=== PATIENT | female | born 1955 | race Caucasian/White ===

== ENCOUNTER 2016-07-06 11:09 | Emergency (ER) | payer MEDICARE, MEDICAID ==
--- NOTE | 2016-07-06 12:49 | EDM.PDOC ---
[id number] Chief Complaint: General Stated Complaint: WEAKNESS,NAUSEA,DIZZINESS Time Seen by Provider: 07/06/16 12:45 - Related Data Allergies Allergy/AdvReac Type Severity Reaction Status Date / Time No Known Allergies Allergy Verified 07/06/16 11:30 Home Meds: Home Meds Insulin Detemir [Levemir Flextouch] 20 units SQ BEDTIME 06/21/14 [History] metFORMIN [Glucophage XR] 750 mg PO BIDM 06/21/14 [History] traMADol HCl [Tramadol HCl] 50 - 100 mg PO Q6H PRN 06/21/14 [History] Dexamethasone 1 mg PO ASDIRECTED 06/08/16 [History] Mecobalamin [Methylcobalamin] 5,000 mcg PO DAILY 06/08/16 [History] Multivitamin [Multivitamins] 1 tab PO DAILY 06/08/16 [History] Spironolactone [Aldactone] 100 mg PO DAILY 06/08/16 [History] oxyCODONE HCl [Oxycontin] 40 mg PO Q8H 06/08/16 [History] riTUXimab [Rituxan] ASDIRECTED 06/08/16 [History] Allopurinol [Zyloprim] 1 tab PO BID 07/06/16 [History] Folic Acid 1 tab PO DAILY 07/06/16 [History] Omeprazole 1 tab PO DAILY 07/06/16 [History] Ondansetron [Zofran ODT] 4 mg SQ ASDIRECTED 07/06/16 [History] Course - Vital Signs Last Recorded V/S: Last Vital Signs Temp 36.1 C 07/06/16 14:53 Pulse 76 07/06/16 18:15 Resp 14 07/06/16 14:53 BP 119/61 07/06/16 18:15 Pulse Ox 96 07/06/16 18:15 - Orders/Labs/Meds Labs: Laboratory Tests 07/06/16 07/06/16 07/06/16 Range/Units 12:30 12:41 12:41 WBC 1.2 L (4.5-11.0) K/uL RBC 1.62 L (3.30-5.50) M/uL Hgb 5.7 L* D (12.0-15.0) g/dL Hct 16.9 L (36.0-48.0) % MCV 104 H (80-98) fL MCH 35 H (27-31) pg MCHC 34 (32-36) % Plt Count 33 L (150-400) K/uL Neut % (Auto) 31 L (36-66) % Lymph % (Auto) 61 H (24-44) % Webb % (Auto) 7 H (2-6) % Eos % (Auto) 1 L (2-4) % Baso % (Auto) 0 (0-1) % Sodium 135 L (140-148) mmol/L Potassium 4.4 (3.6-5.2) mmol/L Chloride 100 (100-108) mmol/L Carbon Dioxide 24 (21-32) mmol/L Anion Gap 15.4 H (5.0-14.0) mmol/L BUN 20 H (7-18) mg/dL Creatinine 0.5 L (0.6-1.0) mg/dL Est Cr Clr Drug Dosing 106.68 mL/min Estimated GFR (MDRD) > 60 (>60) Glucose 111 H (74-106) mg/dL Calcium 8.3 L (8.5-10.1) mg/dL Total Bilirubin 0.7 (0.2-1.0) mg/dL AST 22 (15-37) U/L ALT 24 (12-78) U/L Alkaline Phosphatase 98 (46-116) U/L Total Protein 6.6 (6.4-8.2) g/dL Albumin 3.5 (3.4-5.0) g/dL Globulin 3.1 (2.3-3.5) g/dL Albumin/Globulin Ratio 1.1 L (1.2-2.2) Blood Type O POSITIVE Gel Antibody Screen Negative Crossmatch See Detail Meds: Medications Discontinued Medications Generic Name Dose Route Start Last Admin Trade Name Freq PRN Reason Stop Dose Admin Heparin Sodium (Porcine) Confirm 07/06/16 18:49 Heparin Lock Flush 100 Units/Ml Syringe Administered 07/06/16 18:50 Dose 500 units .ROUTE .STK-MED ONE Heparin Sodium (Porcine) 300 units 07/06/16 19:17 07/06/16 19:20 Heparin Lock Flush 100 Units/Ml Syringe FLUSH 300 units ASDIRECTED PRN Administration IV Use Departure - Departure Time of Disposition: 19:19 Disposition: Home, Self-Care 01 Condition: fair Clinical Impression: Anemia Qualifiers: Anemia type: bone marrow failure - Discharge Information Instructions: Blood Transfusion, [id number] Referrals: Judson Perez MD [Primary Care Provider] - Forms: ED Department Discharge Care Plan Goals: Go to your scheduled physician appointment for reevaluation tomorrow morning. <Jesica Deluna - Last Filed: 07/09/16 21:07> ED HPI GENERAL MEDICAL PROBLEM - General Source of Information: Reports: Patient, Family History Limitations: Reports: No Limitations - History of Present Illness INITIAL COMMENTS - FREE TEXT/NARRATIVE: pt has been sob and much weaker. Onset: Gradual Duration: Day(s):, Other ( sob) Location: Reports: Chest, Other ( sob) Associated Symptoms: Reports: Shortness of Breath Abdomen Pain Score (Numeric/FACES): 4 Past Medical History HEENT History: Reports: Impaired Vision Gastrointestinal History: Reports: GERD Musculoskeletal History: Reports: Back Pain, Chronic, Osteoporosis, Other (See Below) Other Musculoskeletal History: spinal stenosis Neurological History: Reports: Neuropathy, Diabetic Endocrine/Metabolic History: Reports: Diabetes, Type II Hematologic History: Reports: Anemia, Blood Transfusion(s) Immunologic History: Reports: Immunosuppression Oncologic (Cancer) History: Reports: Lymphoma - Infectious Disease History Infectious Disease History: Reports: Chicken Pox, Measles, Mumps - Past Surgical History GI Surgical History: Reports: Abdominal paracentesis, Appendectomy Female Surgical History: Reports: Hysterectomy Social & Family History - Tobacco Use Smoking Status *Q: Current Every Day Smoker Years of Tobacco use: 40 Packs/Tins Daily: 1 - Caffeine Use Caffeine Use: Reports: Coffee - Alcohol Use Days Per Week of Alcohol Use: 0 - Recreational Drug Use Recreational Drug Use: No ED ROS GENERAL - Review of Systems Review Of Systems: See Below Constitutional: Reports: No Symptoms HEENT: Reports: No Symptoms Respiratory: Reports: Shortness of Breath Cardiovascular: Reports: No Symptoms Endocrine: Reports: No Symptoms GI/Abdominal: Reports: No Symptoms, Other (pt has pt has some tenderness around the spleen. ) : Reports: No Symptoms Musculoskeletal: Reports: No Symptoms Skin: Reports: No Symptoms Neurological: Reports: No Symptoms Psychiatric: Reports: Anxiety ED EXAM, GENERAL - Physical Exam Exam: See Below Free Text/Narrative:: pt arrived sob. She has had increased weakness. Exam Limited By: No Limitations General Appearance: Alert, Anxious, Other ( very pale) Ears: Normal External Exam Nose: Normal Inspection Throat/Mouth: Normal Inspection Head: Atraumatic Neck: Normal Inspection Respiratory/Chest: No Respiratory Distress Cardiovascular: Regular Rate, Rhythm GI/Abdominal: Soft, Non-Tender, Splenomegaly Rectal (Female) Exam: Deferred Back Exam: Normal Inspection Extremities: Normal Inspection Neurological: Alert, Oriented, Normal Cognition Psychiatric: Normal Affect Course - Orders/Labs/Meds Labs: Laboratory Tests 07/06/16 07/06/16 07/06/16 Range/Units 12:30 12:41 12:41 WBC 1.2 L (4.5-11.0) K/uL RBC 1.62 L (3.30-5.50) M/uL Hgb 5.7 L* D (12.0-15.0) g/dL Hct 16.9 L (36.0-48.0) % MCV 104 H (80-98) fL MCH 35 H (27-31) pg MCHC 34 (32-36) % Plt Count 33 L (150-400) K/uL Neut % (Auto) 31 L (36-66) % Lymph % (Auto) 61 H (24-44) % Webb % (Auto) 7 H (2-6) % Eos % (Auto) 1 L (2-4) % Baso % (Auto) 0 (0-1) % Sodium 135 L (140-148) mmol/L Potassium 4.4 (3.6-5.2) mmol/L Chloride 100 (100-108) mmol/L Carbon Dioxide 24 (21-32) mmol/L Anion Gap 15.4 H (5.0-14.0) mmol/L BUN 20 H (7-18) mg/dL Creatinine 0.5 L (0.6-1.0) mg/dL Est Cr Clr Drug Dosing 106.68 mL/min Estimated GFR (MDRD) > 60 (>60) Glucose 111 H (74-106) mg/dL Calcium 8.3 L (8.5-10.1) mg/dL Total Bilirubin 0.7 (0.2-1.0) mg/dL AST 22 (15-37) U/L ALT 24 (12-78) U/L Alkaline Phosphatase 98 (46-116) U/L Total Protein 6.6 (6.4-8.2) g/dL Albumin 3.5 (3.4-5.0) g/dL Globulin 3.1 (2.3-3.5) g/dL Albumin/Globulin Ratio 1.1 L (1.2-2.2) Blood Type O POSITIVE Gel Antibody Screen Negative Crossmatch See Detail Meds: Medications Discontinued Medications Generic Name Dose Route Start Last Admin Trade Name Freq PRN Reason Stop Dose Admin Heparin Sodium (Porcine) Confirm 07/06/16 18:49 Heparin Lock Flush 100 Units/Ml Syringe Administered 07/06/16 18:50 Dose 500 units .ROUTE .STK-MED ONE Heparin Sodium (Porcine) 300 units 07/06/16 19:17 07/06/16 19:20 Heparin Lock Flush 100 Units/Ml Syringe FLUSH 300 units ASDIRECTED PRN Administration IV Use - Re-Assessments/Exams Free Text/Narrative Re-Assessment/Exam: 07/06/16 13:35 pt wasfound to have a hg of 5.7. She will be transfused with 2 units of packed cells. chest xray revealed no acute changes. [facility].
--- NOTE | 2016-07-06 14:08 | CR ---
Chest 2V HISTORY: sob COMPARISON: None FINDINGS: Lungs appear clear and normally aerated. Cardiomediastinal silhouette is within normal limits. No va scular redistribution or pleural fluid can be seen. There is no pneumothorax. Right-sided central ve nous Port-A-Cath is noted. The tip overlies the mid SVC. Bony structures and soft tissues are unrema rkable. IMPRESSION: Right-sided central venous Port-A-Cath is in satisfactory position. The tip overlies the mid SVC. No acute cardiopulmonary disease is identified.
[2016-07-06 18:31] VITALS: BP 119/61
== END 2016-07-06 19:19 | disposition home or self-care (01) ==
LOC: JP.ED 11:09
DX: D61.9 Aplastic anemia, unspecified (principal); K21.9 Gastro-esophageal reflux disease without esophagitis; M19.90 Unspecified osteoarthritis, unspecified site; F17.210 Nicotine dependence, cigarettes, uncomplicated; E11.40 Type 2 diabetes mellitus with diabetic neuropathy, unspecified; Z90.49 Acquired absence of other specified parts of digestive tract; Z79.4 Long term (current) use of insulin; Z79.84 Long term (current) use of oral hypoglycemic drugs; Z79.899 Other long term (current) drug therapy; Z90.710 Acquired absence of both cervix and uterus
CPT/HCPCS: 36415; 36430; 71020; 80053; 85025; 86850; 86900; 86901; 86920; 86922; 99284; 99285; J1642; P9016

== ENCOUNTER 2016-08-15 15:30 | Inpatient (IN) | payer MEDICARE, SELFPAY ==
[2016-08-15] MEDS ORDERED: Lactated Ringers 1,000 ML IV SCH (16:30)
[2016-08-15] MEDS ORDERED: HYDROmorphone 1 MG/ML Syringe IVPUSH ONE (16:32)
[2016-08-15] MEDS ORDERED: Ondansetron 4 MG/2 ML SDV IVPUSH ONE (16:32)
--- NOTE | 2016-08-15 16:38 | EDM.PDOC ---
ED HPI GENERAL MEDICAL PROBLEM - General Chief Complaint: Abdominal Pain Stated Complaint: abd pain Time Seen by Provider: 08/15/16 16:21 Source of Information: Reports: Patient, Family, RN Notes Reviewed History Limitations: Reports: No Limitations - History of Present Illness INITIAL COMMENTS - FREE TEXT/NARRATIVE: 60-year-old female presents emergency department day complaint of increasing abdominal distention and fever she has a known history of follicular lymphoma is currently undergoing chemotherapy once per week she states been feeling fine yesterday felt fine and then the fever came on today as well as the increased abdominal distention. He also has been incontinent of urine and stool which is mainly diarrhea. She has have a history of paracentesis 1 denies any shortness of breath or chest pain, will get increasing pain with a deep breath Abdominal Pain Score (Numeric/FACES): 10 - Related Data Allergies Allergy/AdvReac Type Severity Reaction Status Date / Time No Known Allergies Allergy Verified 08/15/16 17:27 Home Meds: Home Meds Insulin Detemir [Levemir Flextouch] 45 units SQ BEDTIME 06/21/14 [History] metFORMIN [Glucophage XR] 750 mg PO BIDM 06/21/14 [History] traMADol HCl [Tramadol HCl] 50 - 100 mg PO Q6H PRN 06/21/14 [History] Multivitamin [Multivitamins] 1 tab PO DAILY 06/08/16 [History] Allopurinol [Zyloprim] 1 tab PO BID 07/06/16 [History] Folic Acid 1 tab PO DAILY 07/06/16 [History] Ondansetron [Zofran ODT] 4 mg SQ ASDIRECTED 07/06/16 [History] Furosemide 40 mg PO DAILY 08/15/16 [History] oxyCODONE HCl [Oxycontin] 40 mg PO TID 08/15/16 [History] Past Medical History HEENT History: Reports: Impaired Vision Gastrointestinal History: Reports: GERD Genitourinary History: Reports: Urinary Incontinence Musculoskeletal History: Reports: Back Pain, Chronic, Osteoporosis, Other (See Below) Other Musculoskeletal History: spinal stenosis Neurological History: Reports: Neuropathy, Diabetic Endocrine/Metabolic History: Reports: Diabetes, Type II Hematologic History: Reports: Anemia, Blood Transfusion(s) Immunologic History: Reports: Immunosuppression Oncologic (Cancer) History: Reports: Lymphoma - Infectious Disease History Infectious Disease History: Reports: C-Difficile, Measles, Mumps - Past Surgical History GI Surgical History: Reports: Abdominal paracentesis, Appendectomy Female Surgical History: Reports: Hysterectomy Social & Family History - Tobacco Use Smoking Status *Q: Current Every Day Smoker Years of Tobacco use: 40 Packs/Tins Daily: 1 - Caffeine Use Caffeine Use: Reports: Coffee - Alcohol Use Days Per Week of Alcohol Use: 0 - Recreational Drug Use Recreational Drug Use: No ED ROS GENERAL - Review of Systems Review Of Systems: See Below Constitutional: Reports: Fever, Chills, Weakness HEENT: Reports: No Symptoms Respiratory: Reports: No Symptoms Cardiovascular: Reports: No Symptoms GI/Abdominal: Reports: Abdominal Pain, Diarrhea, Distension. Denies: Nausea, Vomiting : Reports: Incontinence Musculoskeletal: Reports: No Symptoms Skin: Reports: No Symptoms Neurological: Reports: No Symptoms ED EXAM, GI/ABD - Physical Exam Exam: See Below Text/Narrative:: General: Female, not in any distress, alert and oriented x3 HEENT: head is atraumatic normocephalic, eyes pupils equal round reactive to light, sclera clear no conjunctivitis appreciated. Ears tympanic membranes clear and choi landmarks and light reflex are present bilaterally canals are clear. Nose no septal deviation, nares are clear, no blood present. Mouth mucosa is moist and pink no erythema or exudate noted in soft palate, tongue is midline uvula is midline, dentition is intact. Neck: Supple no thyromegaly no tracheal deviation. Nodes: Cervical nodes subclavicular nodes nontender no palpable lymphadenopathy noted. Lungs: clear to auscultation bilaterally with symmetrical respirations, no adventitious noise appreciated. CV: Regular rate and rhythm S1 and S2 appreciated grade 2/6 systolic ejection murmur best appreciated left sternal border, no rubs or gallops noted. Abdomen: Soft, generalized tenderness to palpation, no palpable masses or organomegaly appreciated, marked distention distention no guarding bowel sounds are present, . Neuro: Cranial nerves II through XII grossly intact Skin: Warm and dry, intact Extremities: No lower extremity edema appreciated, pedal pulse is +2. Course - Vital Signs Last Recorded V/S: Last Vital Signs Temp 100.2 F 08/15/16 16:09 Pulse 105 H 08/15/16 16:09 Resp 20 08/15/16 16:09 BP 120/65 08/15/16 16:09 Pulse Ox 96 08/15/16 16:09 - Orders/Labs/Meds Orders: Active Orders 24 hr Category Date Time Status CULTURE BLOOD [BC] Urgent Lab 08/15/16 16:35 Received CULTURE BLOOD [BC] Urgent Lab 08/15/16 16:45 Received INR,PT,PROTHROMBIN TIME [COAG] Stat Lab 08/15/16 16:35 Received PTT,PARTIAL THROMBOPLSTIN TIME [COAG] Stat Lab 08/15/16 16:35 Received RED BLOOD CELLS LP [BBK] Stat Lab 08/15/16 17:15 Ordered TYPE AND SCREEN [BBK] Stat Lab 08/15/16 17:15 Ordered UA W/MICROSCOPIC [URIN] Urgent Lab 08/15/16 16:29 Uncollected Cefepime [Maxipime] 1 gm Med 08/15/16 17:41 Active Sodium Chloride 0.9% [Normal Saline] 50 ml IV ONETIME Lactated Ringers [Ringers, Lactated] 1,000 ml Med 08/15/16 16:30 Active IV ASDIRECTED Blood Culture x2 Reflex Set [OM.PC] Urgent Oth 08/15/16 16:29 Ordered Medication Orders Lactated Ringer's (Ringers, Lactated) 1,000 mls @ 500 mls/hr IV ASDIRECTED AMANDA Last Admin: 08/15/16 17:15 Dose: 500 mls/hr Cefepime HCl 1 gm/ Sodium (Chloride) 50 mls @ 100 mls/hr IV ONETIME ONE Stop: 08/15/16 18:10 Labs: Laboratory Tests 08/15/16 08/15/16 08/15/16 Range/Units 16:35 16:35 16:35 WBC 0.9 L* (4.5-11.0) K/uL RBC 2.10 L (3.30-5.50) M/uL Hgb 6.7 L* (12.0-15.0) g/dL Hct 19.4 L (36.0-48.0) % MCV 92 (80-98) fL MCH 32 H (27-31) pg MCHC 35 (32-36) % Plt Count 18 L* (150-400) K/uL Neut % (Auto) 84 H (36-66) % Lymph % (Auto) 9 L (24-44) % Grayson % (Auto) 7 H (2-6) % Eos % (Auto) 0 L (2-4) % Baso % (Auto) 0 (0-1) % Sodium 132 L (140-148) mmol/L Potassium 3.4 L (3.6-5.2) mmol/L Chloride 96 L (100-108) mmol/L Carbon Dioxide 27 (21-32) mmol/L Anion Gap 12.4 (5.0-14.0) mmol/L BUN 28 H D (7-18) mg/dL Creatinine 0.7 (0.6-1.0) mg/dL Est Cr Clr Drug Dosing 75.65 mL/min Estimated GFR (MDRD) > 60 (>60) Glucose 150 H (74-106) mg/dL Lactic Acid 2.8 H (0.4-2.0) mmol/L Calcium 8.2 L (8.5-10.1) mg/dL Total Bilirubin 0.9 D (0.2-1.0) mg/dL AST 26 (15-37) U/L ALT 45 D (12-78) U/L Alkaline Phosphatase 77 (46-116) U/L C-Reactive Protein (0.0-0.3) mg/dL Total Protein 5.7 L (6.4-8.2) g/dL Albumin 2.5 L (3.4-5.0) g/dL Globulin 3.2 (2.3-3.5) g/dL Albumin/Globulin Ratio 0.8 L (1.2-2.2) 06/25/17 Range/Units 16:35 WBC (4.5-11.0) K/uL RBC (3.30-5.50) M/uL Hgb (12.0-15.0) g/dL Hct (36.0-48.0) % MCV (80-98) fL MCH (27-31) pg MCHC (32-36) % Plt Count (150-400) K/uL Neut % (Auto) (36-66) % Lymph % (Auto) (24-44) % Grayson % (Auto) (2-6) % Eos % (Auto) (2-4) % Baso % (Auto) (0-1) % Sodium (140-148) mmol/L Potassium (3.6-5.2) mmol/L Chloride (100-108) mmol/L Carbon Dioxide (21-32) mmol/L Anion Gap (5.0-14.0) mmol/L BUN (7-18) mg/dL Creatinine (0.6-1.0) mg/dL Est Cr Clr Drug Dosing mL/min Estimated GFR (MDRD) (>60) Glucose (74-106) mg/dL Lactic Acid (0.4-2.0) mmol/L Calcium (8.5-10.1) mg/dL Total Bilirubin (0.2-1.0) mg/dL AST (15-37) U/L ALT (12-78) U/L Alkaline Phosphatase (46-116) U/L C-Reactive Protein 32.29 H (0.0-0.3) mg/dL Total Protein (6.4-8.2) g/dL Albumin (3.4-5.0) g/dL Globulin (2.3-3.5) g/dL Albumin/Globulin Ratio (1.2-2.2) Meds: Medications Generic Name Dose Route Start Last Admin Trade Name Freq PRN Reason Stop Dose Admin Lactated Ringer's 1,000 mls @ 500 mls/hr 08/15/16 16:30 08/15/16 17:15 Ringers, Lactated IV 500 mls/hr ASDIRECTED AMANDA Administration Cefepime HCl 1 gm/ Sodium 50 mls @ 100 mls/hr 08/15/16 17:41 Chloride IV 08/15/16 18:10 ONETIME ONE Discontinued Medications Generic Name Dose Route Start Last Admin Trade Name Freq PRN Reason Stop Dose Admin Hydromorphone HCl 1 mg 08/15/16 16:32 08/15/16 17:21 Dilaudid IVPUSH 08/15/16 16:33 1 mg ONETIME ONE Administration Ondansetron HCl 4 mg 08/15/16 16:32 08/15/16 17:19 Zofran IVPUSH 08/15/16 16:33 4 mg ONETIME ONE Administration Departure - Departure Time of Disposition: 17:55 Disposition: Admitted As Inpatient 68 Condition: Poor Clinical Impression: Neutropenic fever Follicular lymphoma Qualifiers: Follicular lymphoma type: unspecified follicular type Lymphoma site: unspecified region Qualified Code(s): C82.90 - Follicular lymphoma, unspecified , unspecified site - Discharge Information Forms: ED Department Discharge - My Orders Last 24 Hours: My Active Orders 08/15/16 16:29 UA W/MICROSCOPIC [URIN] Urgent Blood Culture x2 Reflex Set [OM.PC] Urgent 08/15/16 16:30 Lactated Ringers [Ringers, Lactated] 1,000 ml IV ASDIRECTED 08/15/16 16:35 CULTURE BLOOD [BC] Urgent INR,PT,PROTHROMBIN TIME [COAG] Stat PTT,PARTIAL THROMBOPLSTIN TIME [COAG] Stat 08/15/16 16:45 CULTURE BLOOD [BC] Urgent 08/15/16 17:15 RED BLOOD CELLS LP [BBK] Stat TYPE AND SCREEN [BBK] Stat 08/15/16 17:41 Cefepime [Maxipime] 1 gm Sodium Chloride 0.9% [Normal Saline] 50 ml IV ONETIME - Assessment/Plan Last 24 Hours: My Active Orders 08/15/16 16:29 UA W/MICROSCOPIC [URIN] Urgent Blood Culture x2 Reflex Set [OM.PC] Urgent 08/15/16 16:30 Lactated Ringers [Ringers, Lactated] 1,000 ml IV ASDIRECTED 08/15/16 16:35 CULTURE BLOOD [BC] Urgent INR,PT,PROTHROMBIN TIME [COAG] Stat PTT,PARTIAL THROMBOPLSTIN TIME [COAG] Stat 08/15/16 16:45 CULTURE BLOOD [BC] Urgent 08/15/16 17:15 RED BLOOD CELLS LP [BBK] Stat TYPE AND SCREEN [BBK] Stat 08/15/16 17:41 Cefepime [Maxipime] 1 gm Sodium Chloride 0.9% [Normal Saline] 50 ml IV ONETIME Plan: Assessment Acuity = acute Site and laterality = neutropenic fever complicated patient with known history of follicular lymphoma Etiology = unclear etiology Manifestations = fever, weakness Location of injury = home Lab values = WBC low at 900 consistent with leukopenia neutrophils are at 756 hematoma low at 6.7 consistent with normochromic anemia platelets low at 18 consistent with thrombocytopenia sodium low at 132 consistent with hyponatremia potassium low at 3.4 consistent hypokalemia lactic acid elevated at 2.8 consistent lactic acidosis CRP elevated at 33 and albumin low at 2.5 consistent hypoalbuminemia Plan discuss case with hospitalist electronic equipment trades worker he agreed to come and evaluate the patient in the ED for admission, she was given 1 g cefepime blood cultures are pending Patient was in agreement with the plan all questions were answered This note was dictated using [employer] voice recognition software please call with any questions.
[2016-08-15] MEDS ORDERED: Cefepime 1 GM in Sodium Chloride 0.9% 50 ML IV ONE (17:41)
[2016-08-15] MEDS ORDERED: Lactated Ringers 1,000 ML IV ONE (18:15)
--- NOTE | 2016-08-15 19:12 | PCM.HP ---
H&P History of Present Illness - General Date of Service: 08/15/16 Admit Problem/Dx: Admission Diagnosis/Problem Admission Diagnosis/Problem Abdominal pain Source of Information: Patient, Family, Provider History Limitations: Reports: No Limitations - History of Present Illness Initial Comments - Free Text/Narative: Josefina presents to the emergency room today with 3 days of progressive generalized abdominal pain and diarrhea. She describes a combination of sharp and achy generalized abdominal pain that comes and goes in waves. Her usual home narcotics have not been sufficient to control the pain. Eating does not seem to affect the pain. Pain seems to be worse prior to bowel movements. Bowel movements had been normal the past 2 days but today she reports multiple episodes with large quantities of loose and watery stool with a very foul odor. She notes that her urine has been dark and foul-smelling compared to usual as well. Appetite has not been very good but she has been drinking plenty of water. She hasn't noticed fevers at home but has had some chills. No shaking chills are reported. No complaints of shortness of breath beyond her baseline. She did get short of breath when she laid down today. She has not been coughing. No obvious sick contacts or recent travel. Her last chemotherapy was last Tuesday, 5 days before admission. Workup in the emergency room revealed pancytopenia, sepsis with likely intra- abdominal source. She has received her fluid challenge and antibiotics and will be admitted to the intensive care unit. Abdominal Pain Score (Numeric/FACES): 10 - Related Data Allergies/Adverse Reactions: Allergies Allergy/AdvReac Type Severity Reaction Status Date / Time No Known Allergies Allergy Verified 08/15/16 18:17 Home Medications: Home Meds Insulin Detemir [Levemir Flextouch] 45 units SQ BEDTIME 06/21/14 [History] metFORMIN [Glucophage XR] 750 mg PO BIDM 06/21/14 [History] traMADol HCl [Tramadol HCl] 50 - 100 mg PO Q6H PRN 06/21/14 [History] Multivitamin [Multivitamins] 1 tab PO DAILY 06/08/16 [History] Allopurinol [Zyloprim] 1 tab PO BID 07/06/16 [History] Folic Acid 1 tab PO DAILY 07/06/16 [History] Ondansetron [Zofran ODT] 4 mg SQ ASDIRECTED 07/06/16 [History] Furosemide 40 mg PO DAILY 08/15/16 [History] oxyCODONE HCl [Oxycontin] 40 mg PO TID 08/15/16 [History] Past Medical History HEENT History: Reports: Impaired Vision Gastrointestinal History: Reports: GERD Other Gastrointestinal History: took the meds to get rid of hep c Genitourinary History: Reports: Urinary Incontinence Musculoskeletal History: Reports: Back Pain, Chronic, Osteoporosis, Other (See Below) Other Musculoskeletal History: spinal stenosis Neurological History: Reports: Neuropathy, Diabetic Endocrine/Metabolic History: Reports: Diabetes, Type II Hematologic History: Reports: Anemia, Blood Transfusion(s) Immunologic History: Reports: Immunosuppression Oncologic (Cancer) History: Reports: Lymphoma - Infectious Disease History Infectious Disease History: Reports: C-Difficile, Measles, Mumps - Past Surgical History GI Surgical History: Reports: Abdominal paracentesis, Appendectomy Female Surgical History: Reports: Hysterectomy Social & Family History - Family History Oncologic: Reports: Bone (Brother), Brain (Brother) - Tobacco Use Smoking Status *Q: Current Every Day Smoker Years of Tobacco use: 40 Packs/Tins Daily: 1 - Caffeine Use Caffeine Use: Reports: Coffee - Alcohol Use Days Per Week of Alcohol Use: 0 - Recreational Drug Use Recreational Drug Use: No H&P Review of Systems - Review of Systems: Review Of Systems: See Below Free Text/Narrative: A complete 12 point review of systems was obtained. Pertinent positives and negatives are noted in the history of present illness. All other systems were reviewed and were negative except as noted. Exam - Exam Exam: See Below - Vital Signs Vital Signs: Last Vital Signs Temp 37.7 C 08/15/16 18:11 Pulse 95 08/15/16 18:11 Resp 16 08/15/16 18:11 BP 93/51 L 08/15/16 18:11 Pulse Ox 94 L 08/15/16 18:11 Weight: 60.328 kg - Exam Quality Assessment: No: Supplemental Oxygen General: Alert, Oriented, Cooperative, Mild Distress HEENT: Conjunctiva Clear, Pupils Equal. No: Mucosa Moist & [place] (dry), Scleral Icterus Neck: Supple, Trachea Midline. No: Lymphadenopathy, Thyromegaly Lungs: Clear to Auscultation, Normal Respiratory Effort Cardiovascular: Regular Rhythm, Tachycardia, Systolic Murmur Abdomen: Normal Bowel Sounds, Soft, Distention, Guarding, Tenderness (Severe diffuse tenderness) Back Exam: Normal Inspection, Full Range of Motion Extremities: Normal Inspection, Normal Pulses. No: Cyanosis, Edema Peripheral Pulses: 2+: Dorsalis Pedis (L), Dorsalis Pedis (R) Skin: Warm, Dry, Intact Neuro Extensive - Mental Status: Alert, Oriented x3, Nl Response to Commands Neuro Extensive - Motor, Sensory, Reflexes: CN II-XII Intact. No: Dysarthria, Abnormal Motor, Tremor Psychiatric: Alert, Normal Affect, Normal Mood - Patient Data Lab Results Last 24 hrs: Laboratory Results - last 24 hr 08/15/16 08/15/16 08/15/16 Range/Units 16:35 16:35 16:35 WBC 0.9 L* (4.5-11.0) K/uL RBC 2.10 L (3.30-5.50) M/uL Hgb 6.7 L* (12.0-15.0) g/dL Hct 19.4 L (36.0-48.0) % MCV 92 (80-98) fL MCH 32 H (27-31) pg MCHC 35 (32-36) % Plt Count 18 L* (150-400) K/uL Neut % (Auto) 84 H (36-66) % Lymph % (Auto) 9 L (24-44) % [place] % (Auto) 7 H (2-6) % Eos % (Auto) 0 L (2-4) % Baso % (Auto) 0 (0-1) % PT 12.5 H (9.5-12.0) sec INR 1.16 (0.80-1.20) APTT 31.4 (27.0-36.0) sec Sodium 132 L (140-148) mmol/L Potassium 3.4 L (3.6-5.2) mmol/L Chloride 96 L (100-108) mmol/L Carbon Dioxide 27 (21-32) mmol/L Anion Gap 12.4 (5.0-14.0) mmol/L BUN 28 H D (7-18) mg/dL Creatinine 0.7 (0.6-1.0) mg/dL Est Cr Clr Drug Dosing 75.65 mL/min Estimated GFR (MDRD) > 60 (>60) Glucose 150 H (74-106) mg/dL Lactic Acid (0.4-2.0) mmol/L Calcium 8.2 L (8.5-10.1) mg/dL Total Bilirubin 0.9 D (0.2-1.0) mg/dL AST 26 (15-37) U/L ALT 45 D (12-78) U/L Alkaline Phosphatase 77 (46-116) U/L C-Reactive Protein (0.0-0.3) mg/dL Total Protein 5.7 L (6.4-8.2) g/dL Albumin 2.5 L (3.4-5.0) g/dL Globulin 3.2 (2.3-3.5) g/dL Albumin/Globulin Ratio 0.8 L (1.2-2.2) Urine Color Urine Appearance Urine pH (4.5-8.0) Ur Specific [place] (1.008-1.030) Urine Protein (NEGATIVE) mg/dL Urine Glucose (UA) (NEGATIVE) mg/dL Urine Ketones (NEGATIVE) mg/dL Urine Occult Blood (NEGATIVE) Urine Nitrite (NEGATIVE) Urine Bilirubin (NEGATIVE) Urine Urobilinogen (NORMAL) mg/dL Ur Leukocyte Esterase (NEGATIVE) Urine RBC (0-5) Urine WBC (0-5) Ur Epithelial Cells Amorphous Sediment Urine Bacteria Urine Mucus Blood Type Gel Antibody Screen Crossmatch 08/15/16 08/15/16 08/15/16 Range/Units 16:35 16:35 16:35 WBC (4.5-11.0) K/uL RBC (3.30-5.50) M/uL Hgb (12.0-15.0) g/dL Hct (36.0-48.0) % MCV (80-98) fL MCH (27-31) pg MCHC (32-36) % Plt Count (150-400) K/uL Neut % (Auto) (36-66) % Lymph % (Auto) (24-44) % [place] % (Auto) (2-6) % Eos % (Auto) (2-4) % Baso % (Auto) (0-1) % PT (9.5-12.0) sec INR (0.80-1.20) APTT (27.0-36.0) sec Sodium (140-148) mmol/L Potassium (3.6-5.2) mmol/L Chloride (100-108) mmol/L Carbon Dioxide (21-32) mmol/L Anion Gap (5.0-14.0) mmol/L BUN (7-18) mg/dL Creatinine (0.6-1.0) mg/dL Est Cr Clr Drug Dosing mL/min Estimated GFR (MDRD) (>60) Glucose (74-106) mg/dL Lactic Acid 2.8 H (0.4-2.0) mmol/L Calcium (8.5-10.1) mg/dL Total Bilirubin (0.2-1.0) mg/dL AST (15-37) U/L ALT (12-78) U/L Alkaline Phosphatase (46-116) U/L C-Reactive Protein 32.29 H (0.0-0.3) mg/dL Total Protein (6.4-8.2) g/dL Albumin (3.4-5.0) g/dL Globulin (2.3-3.5) g/dL Albumin/Globulin Ratio (1.2-2.2) Urine Color Urine Appearance Urine pH (4.5-8.0) Ur Specific [place] (1.008-1.030) Urine Protein (NEGATIVE) mg/dL Urine Glucose (UA) (NEGATIVE) mg/dL Urine Ketones (NEGATIVE) mg/dL Urine Occult Blood (NEGATIVE) Urine Nitrite (NEGATIVE) Urine Bilirubin (NEGATIVE) Urine Urobilinogen (NORMAL) mg/dL Ur Leukocyte Esterase (NEGATIVE) Urine RBC (0-5) Urine WBC (0-5) Ur Epithelial Cells Amorphous Sediment Urine Bacteria Urine Mucus Blood Type O POSITIVE Gel Antibody Screen Negative Crossmatch See Detail 08/15/16 Range/Units 17:57 WBC (4.5-11.0) K/uL RBC (3.30-5.50) M/uL Hgb (12.0-15.0) g/dL Hct (36.0-48.0) % MCV (80-98) fL MCH (27-31) pg MCHC (32-36) % Plt Count (150-400) K/uL Neut % (Auto) (36-66) % Lymph % (Auto) (24-44) % [place] % (Auto) (2-6) % Eos % (Auto) (2-4) % Baso % (Auto) (0-1) % PT (9.5-12.0) sec INR (0.80-1.20) APTT (27.0-36.0) sec Sodium (140-148) mmol/L Potassium (3.6-5.2) mmol/L Chloride (100-108) mmol/L Carbon Dioxide (21-32) mmol/L Anion Gap (5.0-14.0) mmol/L BUN (7-18) mg/dL Creatinine (0.6-1.0) mg/dL Est Cr Clr Drug Dosing mL/min Estimated GFR (MDRD) (>60) Glucose (74-106) mg/dL Lactic Acid (0.4-2.0) mmol/L Calcium (8.5-10.1) mg/dL Total Bilirubin (0.2-1.0) mg/dL AST (15-37) U/L ALT (12-78) U/L Alkaline Phosphatase (46-116) U/L C-Reactive Protein (0.0-0.3) mg/dL Total Protein (6.4-8.2) g/dL Albumin (3.4-5.0) g/dL Globulin (2.3-3.5) g/dL Albumin/Globulin Ratio (1.2-2.2) Urine Color [place] Urine Appearance Slightly cloudy Urine pH 5.0 (4.5-8.0) Ur Specific [place] 1.020 (1.008-1.030) Urine Protein 30 H (NEGATIVE) mg/dL Urine Glucose (UA) Normal (NEGATIVE) mg/dL Urine Ketones Negative (NEGATIVE) mg/dL Urine Occult Blood Negative (NEGATIVE) Urine Nitrite Negative (NEGATIVE) Urine Bilirubin Small (NEGATIVE) Urine Urobilinogen 1 (NORMAL) mg/dL Ur Leukocyte Esterase Negative (NEGATIVE) Urine RBC Not seen (0-5) Urine WBC 5-10 H (0-5) Ur Epithelial Cells Few Amorphous Sediment Moderate Urine Bacteria Many Urine Mucus Few Blood Type Gel Antibody Screen Crossmatch Result Diagrams: 08/15/16 16:35 08/15/16 16:35 Imaging Impressions Last 24 hrs: CT scan of the abdomen and pelvis - images are pending *Q Meaningful Use (ADM) - VTE *Q VTE Criteria *Q: VTE Pharmacological Contraindications *Q: Thrombocytopenia - VTE Risk Assess *Q Each Risk Factor Represents 1 Point: Age 41 - 59 years Total Score 1 Point Risk Factors: 1 Each Risk Factor Represents 2 Points: None Total Score 2 Point Risk Factors: 0 Each Risk Factor Represents 3 Points: Present Cancer or Chemotherapy Total Score 3 Point Risk Factors: 3 Each Risk Factor Represents 5 Points: None Total Score 5 Point Risk Factors: 0 Venous Thromboembolism Risk Factor Score *Q: 4 - Stroke *Q Stroke Criteria *Q: - AMI *Q AMI Criteria *Q: - Problem List (1) Abdominal pain SNOMED Code(s): 88660073 ICD Code: R10.9 - UNSPECIFIED ABDOMINAL PAIN Status: Acute Current Visit : Yes Qualifiers: Abdominal location: generalized Qualified Code(s): R10.84 - Generalized abdominal pain (2) Sepsis SNOMED Code(s): 67308837 ICD Code: A41.9 - SEPSIS, UNSPECIFIED ORGANISM Status: Acute Current Visit: Yes Qualifiers: Sepsis type: sepsis due to unspecified organism Qualified Code(s): A41.9 - Sepsis, unspecified organism (3) Neutropenic fever SNOMED Code(s): 983408722 ICD Code: D70.9 - NEUTROPENIA, UNSPECIFIED; R50.81 - FEVER PRESENTING WITH CONDITIONS CLASSIFIED ELSEWHERE Status: Acute Current Visit: Yes (4) Follicular lymphoma SNOMED Code(s): 030287908, 741769580, 592569241, 672294387, [id number], [id number] ICD Code: C82.90 - FOLLICULAR LYMPHOMA, UNSPECIFIED, UNSPECIFIED SITE Status: Chronic Current Visit: Yes Qualifiers: Follicular lymphoma type: unspecified follicular type Lymphoma site: unspecified region Qualified Code(s): C82.90 - Follicular lymphoma, unspecified, unspecified site Problem List Initiated/Reviewed/Updated: Yes Orders Last 24hrs: Active Orders 24 hr Category Date Time Status Patient Status Manage Transfer [TRANSFER] Routine ADT 08/15/16 18:57 Ordered Abdomen Pelvis w Cont [CT] Stat Exams 08/15/16 18:54 Ordered CULTURE BLOOD [BC] Urgent Lab 08/15/16 16:35 Received CULTURE BLOOD [BC] Urgent Lab 08/15/16 16:45 Received RED BLOOD CELLS LP [BBK] Stat Lab 08/15/16 16:35 Results TYPE AND SCREEN [BBK] Stat Lab 08/15/16 16:35 Results HYDROmorphone [Dilaudid] Med 08/15/16 18:55 Active 0.5 - 1 mg IVPUSH Q2H PRN Lactated Ringers [Ringers, Lactated] 1,000 ml Med 08/15/16 16:30 Active IV ASDIRECTED Lactated Ringers [Ringers, Lactated] 1,000 ml Med 08/15/16 18:15 Active IV ONETIME Blood Culture x2 Reflex Set [OM.PC] Urgent Oth 08/15/16 16:29 Ordered Resuscitation Status Routine Resus Stat 08/15/16 18:59 Ordered Medication Orders Hydromorphone HCl (Dilaudid) 0.5 - 1 mg IVPUSH Q2H PRN PRN Reason: Pain (severe 7-10) Lactated Ringer's (Ringers, Lactated) 1,000 mls @ 500 mls/hr IV ASDIRECTED AMANDA Last Admin: 08/15/16 17:15 Dose: 500 mls/hr Lactated Ringer's (Ringers, Lactated) 1,000 mls @ 999 mls/hr IV ONETIME ONE Stop: 08/15/16 19:15 Assessment/Plan Comment:: Assessment and plan - Neutropenic fever with sepsis - significant abdominal pain and diarrhea making this the likely source for her infection. CT scan is pending. With her low immune system Clostridium difficile is possible though she has not had recent antibiotics. Lungs are clear and the urine not strongly suggestive of infection. Evidence for sepsis including tachycardia, elevated lactic acid level and hypotension. She has received her 30 mL/kg IV fluid bolus and antibiotics in the emergency room. Cultures have been collected. -Follow-up CT scan of the abdomen and pelvis -Empiric antibiotic coverage with cefepime and ciprofloxacin -Clostridium difficile testing and stool culture if she has additional episodes of diarrhea -Repeat lactic acid level -Continue IV fluids -Hydrocortisone since she has had recent high-dose prednisone therapy -Pain control Pancytopenia - Likely secondary to recent chemotherapy. Hemoglobin is less than 7 and transfusion is indicated. With her low white blood cell count I have requested leuko-reduced and irradiated red blood cells. Platelets are greater than 10,000 at this time with no evidence for bleeding. Absolute neutrophil count is around 700. -Transfused 2 units when available tomorrow -Repeat labs in the morning -Transfuse platelets if less than 10,000 or bleeding Low-grade follicular lymphoma - Primary oncologist is Dr. Castro at [facility] in [place]. Most recent chemotherapy was 5 days ago and she is receiving Gazyva and vincristine on Tuesdays and prednisone 60 mg each week day. No prednisone on the weekends. This is her second line chemotherapy. -consider contacting Oncology tomorrow if needed Tobacco dependence - No interest in quitting at this time. Would benefit from additional cessation recommendations. Maintenance issues - - DVT prophylaxis - mechanical with thrombocytopenia - GI prophylaxis - PPI - Nutrition - regular diet - Ash catheter - not indicated CODE STATUS - Full Code Admission justification - This patient will be admitted for inpatient services and is medically appropriate meeting medical necessity for inpatient admission as outlined in my documentation. I reasonably expect the patient will require inpatient services that span a period time over 2 midnights. I reasonably expect this patient to be discharged or transferred within 96 hours [facility]. Disposition - anticipated discharge to home after the hospital stay Primary care physician - Dr. Chris Olson M.D.
[2016-08-15] MEDS ORDERED: Iopamidol 612 MG/ML 100 ML Bottle IV PRN (19:32)
[2016-08-15] MEDS: HYDROmorphone 1 MG/ML Syringe IVPUSH PRN ×2 (19:40→23:33)
[2016-08-15] MEDS ORDERED: Ondansetron 4 MG Tab.DIS PO PRN (20:07)
[2016-08-15] MEDS ORDERED: Acetaminophen 325 MG Tab PO PRN (20:07)
[2016-08-15] MEDS ORDERED: traMADol 50 MG Tab PO PRN (20:07)
[2016-08-15] MEDS ORDERED: Pantoprazole 40 MG Vial IV ONE (20:07)
[2016-08-15] MEDS ORDERED: Ondansetron 4 MG/2 ML SDV IV PRN (20:07)
[2016-08-15] MEDS ORDERED: Insulin Detemir 100 Units/ML 3 ML Pen SUBCUT SCH (21:00)
[2016-08-15] MEDS: Sodium Chloride 0.9% 1,000 ML IV SCH (21:27)
[2016-08-15] MEDS: Insulin Aspart 100 Units/ML 3 ML Pen SUBCUT SCH (21:31)
[2016-08-15] MEDS: OXYCODONE 40 MG PO SCH (21:34)
[2016-08-15] MEDS: Ciprofloxacin in D5W 400 MG in Premix Bag 1 BAG IV SCH ×2 (21:35)
[2016-08-15] MEDS: Hydrocortisone Sodium Succinate 100 MG/2 ML SDV IVPUSH SCH (21:39)
[2016-08-16] MEDS ORDERED: Sodium Chloride 0.9% 1,000 ML IV ONE (00:17)
[2016-08-16] MEDS ORDERED: LORazepam 2 MG/ML MDV IVPUSH PRN (00:18)
[2016-08-16] MEDS: Nicotine 14 MG/24 Hr Patch TRDERM SCH ×2 (00:40→08:54)
[2016-08-16] MEDS: Cefepime 1 GM in Sodium Chloride 0.9% 50 ML IV SCH ×2 (02:53→09:48)
[2016-08-16] MEDS ORDERED: Sodium Chloride 0.9% 1,000 ML IV SCH (04:00)
[2016-08-16] MEDS: HYDROmorphone 1 MG/ML Syringe IVPUSH PRN (04:15)
[2016-08-16] MEDS ORDERED: Pantoprazole 40 MG Tab.CR PO SCH (07:30)
[2016-08-16] MEDS: Sodium Chloride 0.9% 1,000 ML IV SCH (07:39)
[2016-08-16] MEDS: Hydrocortisone Sodium Succinate 100 MG/2 ML SDV IVPUSH SCH (07:54)
[2016-08-16] MEDS: Ciprofloxacin in D5W 400 MG in Premix Bag 1 BAG IV SCH ×2 (07:54)
[2016-08-16] MEDS: Insulin Aspart 100 Units/ML 3 ML Pen SUBCUT SCH (07:57)
[2016-08-16] MEDS: OXYCODONE 40 MG PO SCH (08:54)
[2016-08-16] MEDS ORDERED: Folic Acid 1 MG Tab PO SCH (09:00)
[2016-08-16] MEDS ORDERED: Allopurinol 300 MG Tab PO SCH (09:00)
[2016-08-16] MEDS ORDERED: metroNIDAZOLE/Normal Saline 500 MG in Premix Bag 1 BAG IV SCH (09:30)
--- NOTE | 2016-08-16 10:18 | PCM.DCSUM1 ---
Discharge Summary - Hospital Course Brief History: Ms. Gil is a 60-year-old woman who was admitted through the emergency department with a known history of low-grade follicular lymphoma. She was admitted with pancytopenia and sepsis secondary to probable necrotizing enterocolitis. - Discharge Data Discharge Date: 08/16/16 Discharge Disposition: DC/Tfer to [facility] 02 Condition: Serious - Discharge Diagnosis/Problem(s) (1) Pancytopenia SNOMED Code(s): 703146672 ICD Code: D61.818 - OTHER PANCYTOPENIA Status: Acute Current Visit: Yes (2) Necrotizing enterocolitis SNOMED Code(s): 25983239 ICD Code: K55.30 - NECROTIZING ENTEROCOLITIS, UNSPECIFIED Status: Acute Current Visit: Yes (3) Sepsis SNOMED Code(s): 20114449 ICD Code: A41.9 - SEPSIS, UNSPECIFIED ORGANISM Status: Acute Current Visit: Yes Qualifiers: Sepsis type: sepsis due to unspecified organism Qualified Code(s): A41.9 - Sepsis, unspecified organism (4) Follicular lymphoma SNOMED Code(s): 066330904, [id number], 685796053, 268414233, 589648234, 892344405 ICD Code: C82.90 - FOLLICULAR LYMPHOMA, UNSPECIFIED, UNSPECIFIED SITE Status: Chronic Current Visit: Yes Qualifiers: Follicular lymphoma type: unspecified follicular type Lymphoma site: unspecified region Qualified Code(s): C82.90 - Follicular lymphoma, unspecified, unspecified site - Patient Summary/Data Hospital Course: Ms. Gil is a 60-year-old woman who is admitted through the emergency department with pancytopenia and right lower quadrant abdominal pain likely secondary to necrotizing enterocolitis. She has a known history of low-grade follicular lymphoma and has received recent chemotherapy. She has had ongoing difficulty with pancytopenia. For 2 days prior to admission developed abdominal pain with fever and progressive weakness as well as a one-week history of diarrhea. She was felt to have early sepsis and was given vigorous IV fluid replacement on admission and after admission for management of borderline low blood pressure. She was started on IV antibiotic therapy with cefepime, ciprofloxacin, and metronidazole. On the morning of transfer was noted to have platelet count of 14,000, white blood cell count of 700, and a hemoglobin of 5. Because of difficulty in obtaining adequate blood products and the underlying probable necrotizing enterocolitis was felt that she would be best cared for any large tertiary care center. CT scan obtained at the time of admission did document inflammation in the cecum and ascending colon. She has been accepted in transfer by the oncologist technology applications teacher at [facility] in [facility]. She will be transferred via [facility]. - Patient Instructions Diet: NPO Activity: As Tolerated Other/Special Instructions: Transfer to [facility] via [facility] - Discharge Plan Home Medications: Home Meds Insulin Detemir [Levemir Flextouch] 45 units SQ BEDTIME 06/21/14 [History] traMADol HCl [Tramadol HCl] 50 - 100 mg PO Q6H PRN 06/21/14 [History] Allopurinol [Zyloprim] 1 tab PO BID 07/06/16 [History] Folic Acid 1 tab PO DAILY 07/06/16 [History] oxyCODONE HCl [Oxycontin] 40 mg PO TID 08/15/16 [History] Cefepime [Maxipime] 1 gm IV Q8H vial 08/16/16 [Rx] Ciprofloxacin in D5W [Ciprofloxacin-D5W] 400 mg IV Q12H bag 08/16/16 [Rx] HYDROmorphone [Dilaudid] 0.5 - 1 mg IVPUSH Q2H PRN #0 syringe 08/16/16 [Rx] Nicotine [Habitrol] 14 mg TRDERM DAILY patch 08/16/16 [Rx] Pantoprazole [ProTONIX] 40 mg PO ACBREAKFAST tab.cr 08/16/16 [Rx] metroNIDAZOLE/Normal Saline [Flagyl 500 MG in NS 100 ML] 500 mg IV Q8H bag [Rx] Referrals: Judson Perez MD [Primary Care Provider] - - Patient Data Vitals - Most Recent: Last Vital Signs Temp 98.4 F 08/16/16 08:00 Pulse 90 08/16/16 09:00 Resp 15 08/16/16 09:00 BP 112/58 L 08/16/16 09:00 Pulse Ox 97 08/16/16 09:00 Weight - Most Recent: 137 lb 9.6 oz I&O - Last 24 hours: Intake & Output 08/15/16 08/16/16 08/16/16 22:59 06:59 14:59 Intake Total 4371 Output Total 900 Balance 3471 Lab Results - Last 24 hrs: Laboratory Results - last 24 hr 08/15/16 08/16/16 08/16/16 Range/Units 21:15 05:11 05:11 WBC 0.7 L* (4.5-11.0) K/uL RBC 1.57 L (3.30-5.50) M/uL Hgb 5.0 L* (12.0-15.0) g/dL Hct 14.8 L (36.0-48.0) % MCV 94 (80-98) fL MCH 32 H (27-31) pg MCHC 34 (32-36) % Plt Count 14 L* (150-400) K/uL Neut % (Auto) [employer] Lymph % (Auto) [employer] [place] % (Auto) [employer] Eos % (Auto) [employer] Baso % (Auto) [employer] Add Manual Diff Yes Neutrophils % (Manual) 69 H (36-66) % Band Neutrophils % 7 (5-11) % Lymphocytes % (Manual) 10 L (24-44) % Monocytes % (Manual) 14 H (2-6) % Poikilocytosis Moderate H Anisocytosis Marked H Ovalocytes Moderate H Sodium 134 L (140-148) mmol/L Potassium 3.3 L (3.6-5.2) mmol/L Chloride 101 (100-108) mmol/L Carbon Dioxide 24 (21-32) mmol/L Anion Gap 12.3 (5.0-14.0) mmol/L BUN 21 H (7-18) mg/dL Creatinine 0.6 (0.6-1.0) mg/dL Est Cr Clr Drug Dosing 88.25 mL/min Estimated GFR (MDRD) > 60 (>60) Glucose 291 H (74-106) mg/dL Lactic Acid 1.7 (0.4-2.0) mmol/L Calcium 7.2 L (8.5-10.1) mg/dL 08/16/16 Range/Units 05:11 WBC (4.5-11.0) K/uL RBC (3.30-5.50) M/uL Hgb (12.0-15.0) g/dL Hct (36.0-48.0) % MCV (80-98) fL MCH (27-31) pg MCHC (32-36) % Plt Count (150-400) K/uL Neut % (Auto) Lymph % (Auto) [place] % (Auto) Eos % (Auto) Baso % (Auto) Add Manual Diff Neutrophils % (Manual) (36-66) % Band Neutrophils % (5-11) % Lymphocytes % (Manual) (24-44) % Monocytes % (Manual) (2-6) % Poikilocytosis Anisocytosis Ovalocytes Sodium (140-148) mmol/L Potassium (3.6-5.2) mmol/L Chloride (100-108) mmol/L Carbon Dioxide (21-32) mmol/L Anion Gap (5.0-14.0) mmol/L BUN (7-18) mg/dL Creatinine (0.6-1.0) mg/dL Est Cr Clr Drug Dosing mL/min Estimated GFR (MDRD) (>60) Glucose (74-106) mg/dL Lactic Acid 3.1 H (0.4-2.0) mmol/L Calcium (8.5-10.1) mg/dL Med Orders - Current: Current Medications Acetaminophen (Tylenol) 650 mg PO Q4H PRN PRN Reason: Pain (Mild 1-3)/fever Allopurinol (Zyloprim) 300 mg PO DAILY [facility] Last Admin: 08/16/16 08:54 Dose: 300 mg Folic Acid (Folic Acid) 1 mg PO DAILY [facility] Last Admin: 08/16/16 08:54 Dose: 1 mg Hydrocortisone Sodium Succinate (Solu-Cortef) 100 mg IVPUSH Q12H [facility] Last Admin: 08/16/16 07:54 Dose: 100 mg Hydromorphone HCl (Dilaudid) 0.5 - 1 mg IVPUSH Q2H PRN PRN Reason: Pain (severe 7-10) Last Admin: 08/16/16 04:15 Dose: 1 mg Cefepime HCl 1 gm/ Sodium (Chloride) 50 mls @ 100 mls/hr IV Q8H [facility] Last Admin: 08/16/16 09:48 Dose: 100 mls/hr Ciprofloxacin/Dextrose 400 mg/ (Premix) 200 mls @ 200 mls/hr IV Q12H [facility] Last Admin: 08/16/16 07:54 Dose: 200 mls/hr Sodium Chloride (Normal Saline) 1,000 mls @ 125 mls/hr IV ASDIRECTED [facility] Last Admin: 08/16/16 07:39 Dose: 125 mls/hr Potassium Chloride 40 meq/ (Premix) 100 mls @ 25 mls/hr IV ONETIME ONE Stop: 08/16/16 14:29 Metronidazole 500 mg/ Premix 100 mls @ 100 mls/hr IV Q8H [facility] Last Admin: 08/16/16 09:44 Dose: 100 mls/hr Insulin Aspart (Novolog) 0 unit SUBCUT WITHMEALSANDBED [facility] PRN Reason: Protocol Last Admin: 08/16/16 07:57 Dose: 6 units Insulin Detemir (Levemir) 25 unit SUBCUT BEDTIME [facility] Last Admin: 08/15/16 21:30 Dose: 25 units Lorazepam (Ativan) 0.5 mg IVPUSH Q4H PRN PRN Reason: Anxiety Nicotine (Habitrol) 14 mg TRDERM DAILY [facility] Last Admin: 08/16/16 08:54 Dose: 14 mg Ondansetron HCl (Zofran Odt) 4 mg PO Q6H PRN PRN Reason: Nausea able to take PO Ondansetron HCl (Zofran) 4 mg IV Q6H PRN PRN Reason: Nausea/Vomiting Last Admin: 08/16/16 08:57 Dose: 4 mg Oxycodone HCl (Oxycontin) 40 mg PO TID [facility] Last Admin: 08/16/16 08:54 Dose: 40 mg Pantoprazole Sodium (Protonix) 40 mg PO ACBREAKFAST [facility] Last Admin: 08/16/16 07:56 Dose: 40 mg Tramadol HCl (Ultram) 50 - 100 mg PO Q6H PRN PRN Reason: Pain Discontinued Medications Hydromorphone HCl (Dilaudid) 1 mg IVPUSH ONETIME ONE Stop: 08/15/16 16:33 Last Admin: 08/15/16 17:21 Dose: 1 mg Lactated Ringer's (Ringers, Lactated) 1,000 mls @ 500 mls/hr IV ASDIRECTED [facility] Last Admin: 08/15/16 17:15 Dose: 500 mls/hr Cefepime HCl 1 gm/ Sodium (Chloride) 50 mls @ 100 mls/hr IV ONETIME ONE Stop: 08/15/16 18:10 Last Admin: 08/15/16 18:21 Dose: 100 mls/hr Lactated Ringer's (Ringers, Lactated) 1,000 mls @ 999 mls/hr IV ONETIME ONE Stop: 08/15/16 19:15 Last Admin: 08/15/16 19:34 Dose: 999 mls/hr Sodium Chloride (Normal Saline) 70 mls @ 3 mls/sec IV ASDIRECTED ONE Stop: 08/15/16 19:33 Last Admin: 08/15/16 19:52 Dose: 3 mls/sec Sodium Chloride (Normal Saline) 1,000 mls @ 500 mls/hr IV .BOLUS ONE Stop: 08/16/16 02:16 Last Admin: 08/16/16 00:40 Dose: 500 mls/hr Sodium Chloride (Normal Saline) 1,000 mls @ 500 mls/hr IV ASDIRECTED [facility] Last Admin: 08/16/16 04:15 Dose: 500 mls/hr Iopamidol (Isovue-300 (61%)) 100 ml IV . DIRECTED PRN PRN Reason: RADIOLOGY EXAM Stop: 08/15/16 19:33 Last Admin: 08/15/16 19:52 Dose: 100 ml Ondansetron HCl (Zofran) 4 mg IVPUSH ONETIME ONE Stop: 08/15/16 16:33 Last Admin: 08/15/16 17:19 Dose: 4 mg Pantoprazole Sodium (Protonix Iv) 40 mg IV ONETIME ONE Stop: 08/15/16 20:08 Last Admin: 08/15/16 21:28 Dose: 40 mg *Q Meaningful Use (DIS) - VTE *Q VTE Criteria *Q: VTE Pharmacological Contraindications *Q: Thrombocytopenia - Stroke *Q Stroke Criteria *Q: - AMI *Q AMI Criteria *Q:
[2016-08-16] MEDS ORDERED: Potassium Chloride 40 MEQ in Premix Bag 1 BAG IV ONE (10:30)
[2016-08-16 12:05] VITALS: BP 115/60
== END 2016-08-16 12:00 | DRG 871 ==
LOC: JP.ED 15:30 → UNDOADMIN 18:57 → JP.ICU 18:57
PROVIDERS: ADMIT Internal Medicine; ATTEND Internal Medicine
PROC: 30233N1 Transfusion of Nonautologous Red Blood Cells into Peripheral Vein, Percutaneous Approach (ICD-10-PCS; principal; 2016-08-16)
PROC: 30233R1 Transfusion of Nonautologous Platelets into Peripheral Vein, Percutaneous Approach (ICD-10-PCS; principal; 2016-08-16)
DX: A41.9 Sepsis, unspecified organism (principal); D61.810 Antineoplastic chemotherapy induced pancytopenia; K55.30 Necrotizing enterocolitis, unspecified; C82.80 Other types of follicular lymphoma, unspecified site; R50.81 Fever presenting with conditions classified elsewhere; F17.210 Nicotine dependence, cigarettes, uncomplicated; T45.1X5A Adverse effect of antineoplastic and immunosuppressive drugs, initial encounter; E11.40 Type 2 diabetes mellitus with diabetic neuropathy, unspecified; R50.9 Fever, unspecified; R10.84 Generalized abdominal pain; R19.7 Diarrhea, unspecified; Z79.4 Long term (current) use of insulin; D64.9 Anemia, unspecified; M54.9 Dorsalgia, unspecified; G89.29 Other chronic pain; H54.7 Unspecified visual loss
CPT/HCPCS: 36415; 80053; 81001; 83605; 85025; 85610; 85730; 86140; 86850; 86900; 86901; 86920 ×2; 86922 ×2; 87040 ×2; J0692; J1170; J2405; J7050; J7120; 36430; 74177; 80048; 82962; 86945; 87077; 87086; 87186; 96361; 96365; 96375; 96376; 99285; 99285-25; A9270-GY; C9113; J0744; J1720; J3480; J7030; J7040; P9016; P9037; Q9967

== ENCOUNTER 2016-09-21 09:14 | Emergency (ER) | payer MEDICARE, SELFPAY ==
[2016-09-21] MEDS ORDERED: Sodium Chloride 0.9% 1,000 ML IV SCH (10:00)
--- NOTE | 2016-09-21 10:51 | EDM.PDOC ---
ED HPI GENERAL MEDICAL PROBLEM - General Chief Complaint: General Stated Complaint: WEAK AND CONFUSED Time Seen by Provider: 09/21/16 09:55 Source of Information: Reports: Patient, Family History Limitations: Reports: No Limitations - History of Present Illness INITIAL COMMENTS - FREE TEXT/NARRATIVE: pt arrived with a history of confusion this am. She checked her sugar and it was 80 after she had eaten some toast. She was definitely better after she ate. She was concerned that her hg was extremely low. She did not have a headache. She feels that she is much better. She has been having normal stools. Onset: Today Duration: Hour(s):, Other (pt was confused this am. ) Associated Symptoms: Reports: Confusion, Diaphoresis, Other (pt definitely had a low bs, ) abdomen Pain Score (Numeric/FACES): 6 - Related Data Allergies Allergy/AdvReac Type Severity Reaction Status Date / Time No Known Allergies Allergy Verified 09/21/16 09:48 Home Meds: Home Meds Insulin Detemir [Levemir Flextouch] 45 units SQ BEDTIME 06/21/14 [History] traMADol HCl [Tramadol HCl] 50 - 100 mg PO Q6H PRN 06/21/14 [History] Folic Acid 1 tab PO DAILY 07/06/16 [History] oxyCODONE HCl [Oxycontin] 40 mg PO TID 08/15/16 [History] Furosemide 40 mg PO DAILY 09/21/16 [History] Spironolactone [Aldactone] 200 mg PO DAILY 09/21/16 [History] metFORMIN HCl [Metformin HCl ER] 750 mg PO BID 09/21/16 [History] Past Medical History HEENT History: Reports: Impaired Vision Gastrointestinal History: Reports: Chronic Constipation Other Gastrointestinal History: took the meds to get rid of hep c Genitourinary History: Reports: Urinary Incontinence FIRST DYER History: Reports: Other (See Below) Other OB/BYN History: uterine infection Musculoskeletal History: Reports: Back Pain, Chronic, Osteoporosis, Other (See Below) Other Musculoskeletal History: spinal stenosis Neurological History: Reports: Neuropathy, Diabetic Endocrine/Metabolic History: Reports: Diabetes, Type II Hematologic History: Reports: Anemia, Blood Transfusion(s) Immunologic History: Reports: Immunosuppression Oncologic (Cancer) History: Reports: Lymphoma - Infectious Disease History Infectious Disease History: Reports: Chicken Pox, Hepatitis C, Measles, Mumps - Past Surgical History GI Surgical History: Reports: Abdominal paracentesis, Appendectomy Female Surgical History: Reports: Hysterectomy, Salpingo-Oophorectomy Social & Family History - Family History Oncologic: Reports: Bone, Brain - Tobacco Use Smoking Status *Q: Current Every Day Smoker Years of Tobacco use: 40 Packs/Tins Daily: 1 - Caffeine Use Caffeine Use: Reports: Coffee - Alcohol Use Days Per Week of Alcohol Use: 0 - Recreational Drug Use Recreational Drug Use: No ED ROS GENERAL - Review of Systems Review Of Systems: See Below Constitutional: Reports: Weakness, Fatigue HEENT: Reports: No Symptoms Respiratory: Reports: No Symptoms Cardiovascular: Reports: No Symptoms Endocrine: Reports: No Symptoms GI/Abdominal: Reports: No Symptoms : Reports: No Symptoms Musculoskeletal: Reports: No Symptoms Skin: Reports: No Symptoms ED EXAM, GENERAL - Physical Exam Exam: See Below Free Text/Narrative:: pt arrived with a feeling of weaknes. She was confused this am. She has a hisory of lymphoma. Her bs was 80 after she had eaten. Exam Limited By: No Limitations General Appearance: Alert, Anxious, Other (pt does not appear to be confused at this point. ) Ears: Normal TMs Nose: Normal Inspection Throat/Mouth: Normal Inspection Head: Atraumatic Neck: Normal Inspection Respiratory/Chest: No Respiratory Distress Cardiovascular: Regular Rate, Rhythm GI/Abdominal: Soft, Tender (Female) Exam: Deferred Rectal (Female) Exam: Deferred Back Exam: Normal Inspection Extremities: Normal Inspection Neurological: Alert, Oriented, Normal Cognition Psychiatric: Normal Affect Course - Vital Signs Last Recorded V/S: Last Vital Signs Temp 37.3 C 09/21/16 11:45 Pulse 95 09/21/16 11:45 Resp 19 09/21/16 11:45 BP 100/51 L 09/21/16 11:45 Pulse Ox 100 09/21/16 11:45 - Orders/Labs/Meds Orders: Active Orders 24 hr Category Date Time Status RED BLOOD CELLS LP [BBK] Stat Lab 09/21/16 09:50 Results TYPE AND SCREEN [BBK] Stat Lab 09/21/16 09:50 Results Sodium Chloride 0.9% [Normal Saline] 1,000 ml Med 09/21/16 10:00 Active IV ASDIRECTED Transfuse Red Blood Cells [COMM] Stat Oth 09/21/16 10:44 Ordered Medication Orders Sodium Chloride (Normal Saline) 1,000 mls @ 200 mls/hr IV ASDIRECTED [facility] Last Admin: 09/21/16 10:10 Dose: 200 mls/hr Labs: Laboratory Tests 09/21/16 09/21/16 09/21/16 Range/Units 09:50 09:50 09:50 WBC 4.5 (4.5-11.0) K/uL RBC 2.63 L (3.30-5.50) M/uL Hgb 8.8 L D (12.0-15.0) g/dL Hct 25.8 L (36.0-48.0) % MCV 98 (80-98) fL MCH 34 H (27-31) pg MCHC 34 (32-36) % Plt Count 30 L (150-400) K/uL Neut % (Auto) 83 H (36-66) % Lymph % (Auto) 8 L (24-44) % [place] % (Auto) 8 H (2-6) % Eos % (Auto) 0 L (2-4) % Baso % (Auto) 0 (0-1) % Sodium 127 L (140-148) mmol/L Potassium 4.4 (3.6-5.2) mmol/L Chloride 94 L (100-108) mmol/L Carbon Dioxide 26 (21-32) mmol/L Anion Gap 11.4 (5.0-14.0) mmol/L BUN 20 H (7-18) mg/dL Creatinine 0.5 L (0.6-1.0) mg/dL Est Cr Clr Drug Dosing 106.68 mL/min Estimated GFR (MDRD) > 60 (>60) Glucose 151 H (74-106) mg/dL Calcium 8.3 L D (8.5-10.1) mg/dL Total Bilirubin 1.4 H D (0.2-1.0) mg/dL AST 21 (15-37) U/L ALT 40 (12-78) U/L Alkaline Phosphatase 104 (46-116) U/L Total Protein 5.4 L (6.4-8.2) g/dL Albumin 2.9 L (3.4-5.0) g/dL Globulin 2.5 (2.3-3.5) g/dL Albumin/Globulin Ratio 1.2 (1.2-2.2) Urine Color Urine Appearance Urine pH (4.5-8.0) Ur Specific [place] (1.008-1.030) Urine Protein (NEGATIVE) mg/dL Urine Glucose (UA) (NEGATIVE) mg/dL Urine Ketones (NEGATIVE) mg/dL Urine Occult Blood (NEGATIVE) Urine Nitrite (NEGATIVE) Urine Bilirubin (NEGATIVE) Urine Urobilinogen (NORMAL) mg/dL Ur Leukocyte Esterase (NEGATIVE) Urine RBC (0-5) Urine WBC (0-5) Ur Epithelial Cells Amorphous Sediment Urine Bacteria Urine Mucus Blood Type O POSITIVE Gel Antibody Screen Negative Crossmatch See Detail 09/21/16 Range/Units 10:13 WBC (4.5-11.0) K/uL RBC (3.30-5.50) M/uL Hgb (12.0-15.0) g/dL Hct (36.0-48.0) % MCV (80-98) fL MCH (27-31) pg MCHC (32-36) % Plt Count (150-400) K/uL Neut % (Auto) (36-66) % Lymph % (Auto) (24-44) % [place] % (Auto) (2-6) % Eos % (Auto) (2-4) % Baso % (Auto) (0-1) % Sodium (140-148) mmol/L Potassium (3.6-5.2) mmol/L Chloride (100-108) mmol/L Carbon Dioxide (21-32) mmol/L Anion Gap (5.0-14.0) mmol/L BUN (7-18) mg/dL Creatinine (0.6-1.0) mg/dL Est Cr Clr Drug Dosing mL/min Estimated GFR (MDRD) (>60) Glucose (74-106) mg/dL Calcium (8.5-10.1) mg/dL Total Bilirubin (0.2-1.0) mg/dL AST (15-37) U/L ALT (12-78) U/L Alkaline Phosphatase (46-116) U/L Total Protein (6.4-8.2) g/dL Albumin (3.4-5.0) g/dL Globulin (2.3-3.5) g/dL Albumin/Globulin Ratio (1.2-2.2) Urine Color Yellow Urine Appearance Clear Urine pH 7.0 (4.5-8.0) Ur Specific [place] 1.010 (1.008-1.030) Urine Protein Negative (NEGATIVE) mg/dL Urine Glucose (UA) Normal (NEGATIVE) mg/dL Urine Ketones Negative (NEGATIVE) mg/dL Urine Occult Blood Moderate (NEGATIVE) Urine Nitrite Negative (NEGATIVE) Urine Bilirubin Small (NEGATIVE) Urine Urobilinogen 4 (NORMAL) mg/dL Ur Leukocyte Esterase Negative (NEGATIVE) Urine RBC 0-5 (0-5) Urine WBC 0-5 (0-5) Ur Epithelial Cells Rare Amorphous Sediment Not seen Urine Bacteria Not seen Urine Mucus Not seen Blood Type Gel Antibody Screen Crossmatch Meds: Medications Generic Name Dose Route Start Last Admin Trade Name Freq PRN Reason Stop Dose Admin Sodium Chloride 1,000 mls @ 200 mls/hr 09/21/16 10:00 09/21/16 10:10 Normal Saline IV 200 mls/hr ASDIRECTED [facility] Administration - Re-Assessments/Exams Free Text/Narrative Re-Assessment/Exam: 09/21/16 10:54 pt was found to have a hg of 8. She had a bs of 151. She is feeling better. Will plan to transfuse with the 1 unit and discharge and see how she does. 09/21/16 12:18 pt has chronicly low platlets. Departure - Departure Time of Disposition: 12:18 Disposition: Home, Self-Care 01 Condition: Fair Clinical Impression: Hypoglycemia Anemia Qualifiers: Anemia type: bone marrow failure - Discharge Information Forms: ED Department Discharge - My Orders Last 24 Hours: My Active Orders 09/21/16 09:50 RED BLOOD CELLS LP [BBK] Stat TYPE AND SCREEN [BBK] Stat 09/21/16 10:00 Sodium Chloride 0.9% [Normal Saline] 1,000 ml IV ASDIRECTED 09/21/16 10:44 Transfuse Red Blood Cells [COMM] Stat - Assessment/Plan Last 24 Hours: My Active Orders 09/21/16 09:50 RED BLOOD CELLS LP [BBK] Stat TYPE AND SCREEN [BBK] Stat 09/21/16 10:00 Sodium Chloride 0.9% [Normal Saline] 1,000 ml IV ASDIRECTED 09/21/16 10:44 Transfuse Red Blood Cells [COMM] Stat
[2016-09-21 13:08] VITALS: BP 104/56
== END 2016-09-21 13:11 | disposition home or self-care (01) ==
LOC: JP.ED 09:14
DX: E11.649 Type 2 diabetes mellitus with hypoglycemia without coma (principal); D61.9 Aplastic anemia, unspecified; E11.40 Type 2 diabetes mellitus with diabetic neuropathy, unspecified; M81.0 Age-related osteoporosis without current pathological fracture; F17.210 Nicotine dependence, cigarettes, uncomplicated; Z90.710 Acquired absence of both cervix and uterus; Z90.49 Acquired absence of other specified parts of digestive tract; Z90.721 Acquired absence of ovaries, unilateral; Z79.84 Long term (current) use of oral hypoglycemic drugs; Z79.899 Other long term (current) drug therapy; Z79.4 Long term (current) use of insulin; Z85.72 Personal history of non-Hodgkin lymphomas; Z98.890 Other specified postprocedural states
CPT/HCPCS: 36415; 36430; 80053; 81001; 85025; 86850; 86900; 86901; 86920; 86922; 96360; 96361; 99285; J7040; P9016; C1751

== ENCOUNTER 2017-01-21 14:08 | Emergency (ER) | payer MEDICARE, SELFPAY ==
[2017-01-21 14:35] VITALS: BP 137/71
--- NOTE | 2017-01-21 14:39 | EDM.PDOC ---
ED HPI GENERAL MEDICAL PROBLEM - General Chief Complaint: ENT Problem Stated Complaint: NOSEBLEED, LOW PLATELETS Time Seen by Provider: 01/21/17 14:31 Source of Information: Reports: Patient, Old Records, RN Notes Reviewed History Limitations: Reports: No Limitations - History of Present Illness INITIAL COMMENTS - FREE TEXT/NARRATIVE: 61-year-old female presents emergency department today complaint of bloody nose , she does have a history of follicular lymphoma currently undergoing immunotherapy does have a history of thrombocytopenia she is not had a transfusion in some time and is concerned her platelets may be low, last lab work done on her January 18 show platelets of 24,000, her other complaint is fatigue Back Pain Score (Numeric/FACES): 6 - Related Data Allergies Allergy/AdvReac Type Severity Reaction Status Date / Time No Known Allergies Allergy Verified 09/21/16 09:48 Home Meds: Home Meds Insulin Detemir [Levemir Flextouch] 45 units SQ BEDTIME 06/21/14 [History] traMADol HCl [Tramadol HCl] 50 - 100 mg PO Q6H PRN 06/21/14 [History] Folic Acid 1 tab PO DAILY 07/06/16 [History] oxyCODONE HCl [Oxycontin] 40 mg PO TID 08/15/16 [History] Furosemide 40 mg PO DAILY 09/21/16 [History] Spironolactone [Aldactone] 200 mg PO DAILY 09/21/16 [History] metFORMIN HCl [Metformin HCl ER] 750 mg PO BID 09/21/16 [History] Allopurinol [Zyloprim] 300 mg PO DAILY 01/21/17 [History] Ibrutinib [Imbruvica] 420 mg PO DAILY 01/21/17 [History] Insulin Glarg,Human.Rec.Analog [LantUS Solostar] 30 unit SQ DAILY 01/21/17 [ History] Prednisone [IJD: predniSONE] 20 mg PO WITHBREAKFAST 01/21/17 [History] Past Medical History HEENT History: Reports: Impaired Vision Gastrointestinal History: Reports: Chronic Constipation Other Gastrointestinal History: took the meds to get rid of hep c Genitourinary History: Reports: Urinary Incontinence NURSING INFORMATION SYSTEMS COORDINATOR History: Reports: Other (See Below) Other OB/BYN History: uterine infection Musculoskeletal History: Reports: Back Pain, Chronic, Osteoporosis, Other (See Below) Other Musculoskeletal History: spinal stenosis Neurological History: Reports: Neuropathy, Diabetic Endocrine/Metabolic History: Reports: Diabetes, Type II Hematologic History: Reports: Anemia, Blood Transfusion(s) Immunologic History: Reports: Immunosuppression Oncologic (Cancer) History: Reports: Lymphoma (Follicular) - Infectious Disease History Infectious Disease History: Reports: Chicken Pox - Past Surgical History GI Surgical History: Reports: Abdominal paracentesis, Appendectomy Female Surgical History: Reports: Hysterectomy, Salpingo-Oophorectomy Social & Family History - Family History Oncologic: Reports: Bone, Brain - Tobacco Use Smoking Status *Q: Current Every Day Smoker Years of Tobacco use: 45 Packs/Tins Daily: 1 - Caffeine Use Caffeine Use: Reports: Coffee - Alcohol Use Days Per Week of Alcohol Use: 0 - Recreational Drug Use Recreational Drug Use: No ED ROS GENERAL - Review of Systems Review Of Systems: See Below Constitutional: Reports: Weakness, Fatigue HEENT: Reports: Nosebleed Respiratory: Reports: No Symptoms Cardiovascular: Reports: No Symptoms GI/Abdominal: Reports: No Symptoms : Reports: No Symptoms ED EXAM, GENERAL - Physical Exam Exam: See Below Exam Limited By: No Limitations Nose: Normal Inspection, Other (Minimal amount of blood appreciated in the left naris right naris clear). No: Nasal Tenderness, Nasal Deformity, Nasal Swelling , Nasal Drainage, Clear Rhinorrhea, Nasal Flaring Throat/Mouth: Normal Inspection, Normal Lips, Normal Teeth, Normal Gums, Normal Oropharynx, Normal Voice, No Airway Compromise Head: Atraumatic, Normocephalic Respiratory/Chest: No Respiratory Distress Course - Vital Signs Last Recorded V/S: Last Vital Signs Temp 95.5 F 01/21/17 14:20 Pulse 81 01/21/17 14:20 Resp 18 01/21/17 14:20 BP 137/71 01/21/17 14:20 Pulse Ox 97 01/21/17 14:20 - Orders/Labs/Meds Labs: Laboratory Tests 01/21/17 01/21/17 01/21/17 Range/Units 14:48 14:48 14:48 WBC 2.0 L (4.5-11.0) K/uL RBC 3.19 L (3.30-5.50) M/uL Hgb 10.9 L (12.0-15.0) g/dL Hct 32.9 L (36.0-48.0) % MCV 103 H (80-98) fL MCH 34 H (27-31) pg MCHC 33 (32-36) % Plt Count 28 L* (150-400) K/uL Neut % (Auto) 55 (36-66) % Lymph % (Auto) 31 (24-44) % [place] % (Auto) 13 H (2-6) % Eos % (Auto) 1 L (2-4) % Baso % (Auto) 0 (0-1) % PT 10.8 (9.5-12.0) sec INR 1.01 (0.80-1.20) Sodium 132 L (140-148) mmol/L Potassium 4.5 (3.6-5.2) mmol/L Chloride 95 L (100-108) mmol/L Carbon Dioxide 28 (21-32) mmol/L Anion Gap 13.5 (5.0-14.0) mmol/L BUN 21 H (7-18) mg/dL Creatinine 0.6 (0.6-1.0) mg/dL Est Cr Clr Drug Dosing 87.18 mL/min Estimated GFR (MDRD) > 60 (>60) Glucose 262 H (74-106) mg/dL Calcium 9.5 (8.5-10.1) mg/dL Total Bilirubin 0.5 (0.2-1.0) mg/dL AST 25 (15-37) U/L ALT 45 (12-78) U/L Alkaline Phosphatase 95 (46-116) U/L Lactate Dehydrogenase 172 (82-234) U/L Total Protein 6.5 (6.4-8.2) g/dL Albumin 3.8 (3.4-5.0) g/dL Globulin 2.7 (2.3-3.5) g/dL Albumin/Globulin Ratio 1.4 (1.2-2.2) Departure - Departure Time of Disposition: 15:23 Disposition: Home, Self-Care 01 Condition: Poor Clinical Impression: Pancytopenia - Discharge Information Referrals: Judson Perez MD [Primary Care Provider] - Forms: ED Department Discharge Additional Instructions: Continue your current medications, keep your follow-up appointment with oncology call return to the emergency department worsening of symptoms - Assessment/Plan Plan: Assessment Acuity = chronic Site and laterality = pancytopenia complicated patient with known history of follicular lymphoma Etiology = combination follicular lymphoma and immunotherapy Manifestations = bleeding Location of injury = Home Lab values = WBC low at 2.0 consistent leukopenia hemoglobin low at 10.9 consistent with macro chromic anemia platelets low at 28 consistent thrombocytopenia sodium low at 132 consistent hyponatremia glucose elevated at 262 consistent hyperglycemia LDH normal at 172 Plan Bleeding stopped spontaneously while in the ED I did review lab work with her she does have a transfusion set up for Tuesday of next week, we'll continue to follow with oncology Patient was in agreement with the plan all questions were answered, they were instructed to return to the emergency department or call for worsening symptoms. This note was dictated using [employer] voice recognition software please call with any questions.
== END 2017-01-21 15:36 | disposition home or self-care (01) ==
LOC: JP.ED 14:08
DX: D61.818 Other pancytopenia (principal); C82.90 Follicular lymphoma, unspecified, unspecified site; E11.9 Type 2 diabetes mellitus without complications; F17.210 Nicotine dependence, cigarettes, uncomplicated; Z79.4 Long term (current) use of insulin; Z79.899 Other long term (current) drug therapy
CPT/HCPCS: 36415; 80053; 83615; 85025; 85610; 99282; 99284

== ENCOUNTER 2017-05-03 20:10 | Emergency (ER) | payer MEDICARE, MEDICAID ==
[2017-05-03] MEDS ORDERED: Lactated Ringers 1,000 ML IV ONE (20:31)
[2017-05-03] MEDS ORDERED: HYDROmorphone 0.5 MG/0.5 ML Syringe IVPUSH ONE ×3 (20:56→22:05)
[2017-05-03] MEDS ORDERED: Ondansetron 4 MG/2 ML SDV IVPUSH ONE (20:56)
--- NOTE | 2017-05-03 21:04 | EDM.PDOC ---
ED HPI GENERAL MEDICAL PROBLEM - General Chief Complaint: Respiratory Problem Stated Complaint: FEVER Time Seen by Provider: 05/03/17 20:45 Source of Information: Reports: Patient, Family, Old Records, RN History Limitations: Reports: Other (patient is mildly confused.) - History of Present Illness INITIAL COMMENTS - FREE TEXT/NARRATIVE: 61 yo female with known follicular large cell lymphoma presents with not feeling well since yesterday. She is much worse today. Her primary is Dr. Perez, and she is followed by an oncologist out of [facility]. Noticed today that she has a large bruise-like area to her R medial distal leg. Has had some nausea, is not sure if she has vomited or not. Is not sure if she' s had a fever or not. The bruise on her leg is very painful, is not aware of injury to that area. Does have bruising to a lesser extent in other areas as well, these are not new. Is on oral chemo for her CA, she is not aware of what this agent is. Rituximab is listed in her clinic chart. Ibrutinib is listed in her [employer] record through [facility]. Has a TRUONG associated with coughing only. No diarrhea or dysuria. Clinic notes indicate that she is a cigarette smoker. Also states that her chronic low back pain is much worse tonight. Onset: Gradual Onset Date: 05/02/17 Duration: Hour(s):, Getting Worse Location: Reports: Generalized Quality: Reports: Ache (R distal leg is her main source of pain) Severity: Moderate Improves with: Reports: None Worsens with: Reports: None Context: Reports: Other (lymphoma on chemo) Associated Symptoms: Reports: Confusion (mild), Nausea/Vomiting, Rash, Weakness. Denies: Fever/Chills Treatments JEWELRY SALES REPRESENTATIVE: Reports: Other (see below) (none) body aches Pain Score (Numeric/FACES): 8 - Related Data Allergies Allergy/AdvReac Type Severity Reaction Status Date / Time No Known Allergies Allergy Verified 05/03/17 20:21 Home Meds: Home Meds Insulin Detemir [Levemir Flextouch] 45 units SQ BEDTIME 06/21/14 [History] traMADol HCl [Tramadol HCl] 50 - 100 mg PO Q6H PRN 06/21/14 [History] Folic Acid 1 tab PO DAILY 07/06/16 [History] oxyCODONE HCl [Oxycontin] 40 mg PO TID 08/15/16 [History] Furosemide 40 mg PO DAILY 09/21/16 [History] Spironolactone [Aldactone] 200 mg PO DAILY 09/21/16 [History] metFORMIN HCl [Metformin HCl ER] 750 mg PO BID 09/21/16 [History] Ibrutinib [Imbruvica] 420 mg PO DAILY 01/21/17 [History] Insulin Glarg,Human.Rec.Analog [LantUS Solostar] 40 unit SQ DAILY 01/21/17 [ History] Prednisone [IJD: predniSONE] 20 mg PO WITHBREAKFAST 01/21/17 [History] Past Medical History HEENT History: Reports: Impaired Vision Gastrointestinal History: Reports: Chronic Constipation Other Gastrointestinal History: took the meds to get rid of hep c Genitourinary History: Reports: Urinary Incontinence ARMATURE AND ROTOR WINDER History: Reports: Other (See Below) Other OB/BYN History: uterine infection Musculoskeletal History: Reports: Back Pain, Chronic, Osteoporosis, Other (See Below) Other Musculoskeletal History: spinal stenosis Neurological History: Reports: Neuropathy, Diabetic Endocrine/Metabolic History: Reports: Diabetes, Type II Hematologic History: Reports: Anemia, Blood Transfusion(s) Immunologic History: Reports: Immunosuppression Oncologic (Cancer) History: Reports: Lymphoma - Infectious Disease History Infectious Disease History: Reports: Chicken Pox, Measles, Mumps - Past Surgical History GI Surgical History: Reports: Abdominal paracentesis, Appendectomy Female Surgical History: Reports: Hysterectomy, Salpingo-Oophorectomy Social & Family History - Family History Oncologic: Reports: Bone, Brain - Tobacco Use Smoking Status *Q: Current Every Day Smoker Years of Tobacco use: 40 Packs/Tins Daily: 1 Second Hand Smoke Exposure: Yes - Caffeine Use Caffeine Use: Reports: Coffee, Tea - Alcohol Use Days Per Week of Alcohol Use: 0 - Recreational Drug Use Recreational Drug Use: No ED ROS GENERAL - Review of Systems Review Of Systems: See Below Constitutional: Reports: Weakness, Decreased Appetite (at nothing today she thinks, was home alone all day until this sung.). Denies: Fever, Chills, Diaphoresis HEENT: Reports: No Symptoms Respiratory: Reports: Cough (rare, dry) Cardiovascular: Reports: Lightheadedness Endocrine: Reports: No Symptoms GI/Abdominal: Reports: Nausea (mild), Vomiting (not certain if she vomited). Denies: Black Stool, Bloody Stool, Constipation, Diarrhea, Hematemesis, Hematochezia, Melena : Reports: No Symptoms Musculoskeletal: Reports: Back Pain (chronic, worse now than usual), Leg Pain ( R distal, medial) Skin: Reports: Bruising (R distal, medial leg-large bruise. Has smaller bruises on her arms. ) Neurological: Reports: Confusion (mild, today only.) Psychiatric: Reports: No Symptoms ED EXAM, GENERAL - Physical Exam Exam: See Below Exam Limited By: No Limitations General Appearance: Alert, WD/WN, No Apparent Distress Eye Exam: Bilateral Eye: Normal Inspection, PERRL Ears: Normal External Exam, Normal Canal, Hearing Grossly Normal, Normal TMs Ear Exam: Bilateral Ear: Auricle Normal, Canal Normal, TM normal Nose: Normal Inspection, Normal Mucosa, No Blood Throat/Mouth: Normal Inspection, Normal Lips, Normal Teeth, Normal Oropharynx, Normal Voice, No Airway Compromise Head: Atraumatic, Normocephalic Neck: Normal Inspection, Supple, Non-Tender Respiratory/Chest: No Respiratory Distress, Lungs Clear, Normal Breath Sounds, No Accessory Muscle Use Cardiovascular: Regular Rate, Rhythm, Tachycardia GI/Abdominal: Normal Bowel Sounds, Soft, Non-Tender, No Distention Back Exam: Normal Inspection. No: CVA Tenderness (R), CVA Tenderness (L) Extremities: Leg Pain (R leg, distal, medial bruise with associated tenderness even without touching.) Neurological: Alert, CN II-XII Intact, No Motor/Sensory Deficits, Other (mild confusion). No: Sensory/Motor Deficit Psychiatric: Normal Affect, Normal Mood, Other (mildly restless) Skin Exam: Warm, Dry, Intact, No Rash, Ecchymosis (R medial, distal leg large bruise or bruise-like lesion-not hot to touch. Is tender. ). No: Increased Warmth EKG INTERPRETATION EKG Date: 05/03/17 Time: 21:30 Rhythm: NSR Rate (Beats/Min): 109 [place]: Normal P-Wave: Present QRS: Normal ST-T: Elevated (slight elevation inferior leads.) QT: Prolonged (QTc 510) Comparison: NA - No Prior EKG Course - Vital Signs Text/Narrative:: Called [facility] @ 2138h regarding transfer. At 2220h had not gotten an acceptance yet from [place], so called [facility] and they have accepted her. Will fly her as she has critical vitals and critical labs. Critical care time=39 minutes Last Recorded V/S: Last Vital Signs Temp 37.2 C 05/03/17 22:41 Pulse 121 H 05/03/17 22:41 Resp 25 H 05/03/17 22:41 BP 76/36 L 05/03/17 22:41 Pulse Ox 98 05/03/17 22:41 - Orders/Labs/Meds Orders: Active Orders 24 hr Category Date Time Status Cardiac Monitoring [RC] .As Directed Care 05/03/17 20:30 Active EKG Documentation Completion [RC] ASDIRECTED Care 05/03/17 21:25 Active EKG Documentation Completion [RC] ASDIRECTED Care 05/03/17 22:41 Active Ash Catheter Insertion [Insert Urinary Catheter] [OM. Care 05/03/17 22:15 Ordered PC] Q24H Orthostatic Vital Signs [RC] ASDIRECTED Care 05/03/17 20:30 Active Urinary Catheter Assessment [RC] ASDIRECTED Care 05/03/17 22:04 Active Chest 1V Frontal [CR] Stat Exams 05/03/17 21:45 Taken CULTURE BLOOD [BC] Stat Lab 05/03/17 20:50 Received CULTURE BLOOD [BC] Stat Lab 05/03/17 21:44 Received DOPamine/Dextrose 5%-Water [DOPamine in D5W 400 MG/250 Med 05/03/17 22:30 Active ML] 400 mg in 250 ml IV TITRATE Heparin Sodium/D5W [Heparin 25,000 Units in D5W 500 ML] Med 05/03/17 21:35 Active 25,000 units in 500 ml IV TITRATE EKG 12 Lead [EK] Routine Ther 05/03/17 21:25 Ordered EKG 12 Lead [EK] Routine Ther 05/03/17 22:41 Ordered Medication Orders Heparin Sodium/Dextrose (Heparin 25,000 Units In D5w 500 Ml) 25,000 units in 500 mls @ 18 mls/hr IV TITRATE AMANDA PRN Reason: 900 UNITS/HR Last Admin: 05/03/17 21:54 Dose: 900 units/hr, 18 mls/hr Dopamine HCl/Dextrose (Dopamine In D5w 400 Mg/250 Ml) 400 mg in 250 mls @ 23.814 mls/hr IV TITRATE AMANDA; 10 MCG/KG/MIN PRN Reason: Protocol Last Admin: 05/03/17 22:29 Dose: 10 mcg/kg/min, 23.814 mls/hr Labs: Laboratory Tests 05/03/17 05/03/17 05/03/17 Range/Units 20:50 20:50 20:50 WBC 7.4 (4.5-11.0) K/uL RBC 3.77 (3.30-5.50) M/uL Hgb 10.6 L (12.0-15.0) g/dL Hct 31.5 L (36.0-48.0) % MCV 84 (80-98) fL MCH 28 (27-31) pg MCHC 34 (32-36) % Plt Count 53 L (150-400) K/uL D-Dimer, Quantitative (0.0-400.0) ng/mL Sodium 130 L (140-148) mmol/L Potassium 3.7 (3.6-5.2) mmol/L Chloride 94 L (100-108) mmol/L Carbon Dioxide 17 L (21-32) mmol/L Anion Gap 22.7 H (5.0-14.0) mmol/L BUN 20 H (7-18) mg/dL Creatinine 1.6 H D (0.6-1.0) mg/dL Est Cr Clr Drug Dosing 29.94 mL/min Estimated GFR (MDRD) 33 L (>60) Glucose 147 H (74-106) mg/dL Lactic Acid 6.8 H (0.4-2.0) mmol/L Calcium 8.8 (8.5-10.1) mg/dL Troponin I 0.110 H* (0.000-0.056) ng/mL Urine Color Urine Appearance Urine pH (4.5-8.0) Ur Specific [place] (1.008-1.030) Urine Protein (NEGATIVE) mg/dL Urine Glucose (UA) (NEGATIVE) mg/dL Urine Ketones (NEGATIVE) mg/dL Urine Occult Blood (NEGATIVE) Urine Nitrite (NEGATIVE) Urine Bilirubin (NEGATIVE) Urine Urobilinogen (NORMAL) mg/dL Ur Leukocyte Esterase (NEGATIVE) Urine RBC (0-5) Urine WBC (0-5) Ur Epithelial Cells Amorphous Sediment Urine Bacteria Urine Mucus 05/03/17 05/03/17 Range/Units 20:55 22:16 WBC (4.5-11.0) K/uL RBC (3.30-5.50) M/uL Hgb (12.0-15.0) g/dL Hct (36.0-48.0) % MCV (80-98) fL MCH (27-31) pg MCHC (32-36) % Plt Count (150-400) K/uL D-Dimer, Quantitative 1920 H (0.0-400.0) ng/mL Sodium (140-148) mmol/L Potassium (3.6-5.2) mmol/L Chloride (100-108) mmol/L Carbon Dioxide (21-32) mmol/L Anion Gap (5.0-14.0) mmol/L BUN (7-18) mg/dL Creatinine (0.6-1.0) mg/dL Est Cr Clr Drug Dosing mL/min Estimated GFR (MDRD) (>60) Glucose (74-106) mg/dL Lactic Acid (0.4-2.0) mmol/L Calcium (8.5-10.1) mg/dL Troponin I (0.000-0.056) ng/mL Urine Color Yellow Urine Appearance Slightly cloudy Urine pH 5.0 (4.5-8.0) Ur Specific [place] 1.010 (1.008-1.030) Urine Protein Trace (NEGATIVE) mg/dL Urine Glucose (UA) Normal (NEGATIVE) mg/dL Urine Ketones Negative (NEGATIVE) mg/dL Urine Occult Blood Trace (NEGATIVE) Urine Nitrite Negative (NEGATIVE) Urine Bilirubin Small (NEGATIVE) Urine Urobilinogen Normal (NORMAL) mg/dL Ur Leukocyte Esterase Negative (NEGATIVE) Urine RBC 5-10 H (0-5) Urine WBC 0-5 (0-5) Ur Epithelial Cells Few Amorphous Sediment Moderate Urine Bacteria Moderate Urine Mucus Few Meds: Medications Generic Name Dose Route Start Last Admin Trade Name Freq PRN Reason Stop Dose Admin Heparin Sodium/Dextrose 25,000 units in 500 mls @ 18 mls/hr 05/03/17 21:35 21:54 Heparin 25,000 Units In D5w 500 Ml IV 900 units/hr TITRATE AMANDA 18 mls/hr 900 UNITS/HR Administration Dopamine HCl/Dextrose 400 mg in 250 mls @ 23.814 mls/hr 05/03/17 22:30 22:29 Dopamine In D5w 400 Mg/250 Ml IV 10 mcg/kg/min TITRATE AMANDA 23.814 mls/hr Protocol Administration 10 MCG/KG/MIN Discontinued Medications Generic Name Dose Route Start Last Admin Trade Name Freq PRN Reason Stop Dose Admin Heparin Sodium (Porcine) 4,000 units 05/03/17 21:30 05/03/17 21:47 Heparin Sodium IVPUSH 05/03/17 21:31 4,000 units ONETIME ONE Administration Hydromorphone HCl 0.5 mg 05/03/17 20:56 05/03/17 21:04 Dilaudid IVPUSH 05/03/17 20:57 0.5 mg ONETIME ONE Administration Hydromorphone HCl 0.5 mg 05/03/17 21:18 05/03/17 21:28 Dilaudid IVPUSH 05/03/17 21:19 0.5 mg ONETIME ONE Administration Hydromorphone HCl 0.5 mg 05/03/17 22:05 05/03/17 22:18 Dilaudid IVPUSH 05/03/17 22:06 0.5 mg ONETIME ONE Administration Lactated Ringer's 1,000 mls @ 1,000 mls/hr 05/03/17 20:31 05/03/17 20:58 Ringers, Lactated IV 05/03/17 21:30 1,000 mls/hr BOLUS ONE Administration Piperacillin Sod/Tazobactam 100 mls @ 200 mls/hr 05/03/17 21:54 05/03/17 22: 13 Sod 4.5 gm/ Sodium Chloride IV 05/03/17 22:23 200 mls/hr NOW STA Administration Sodium Chloride 500 mls @ 1,000 mls/hr 05/03/17 21:55 05/03/17 22:16 Normal Saline IV 05/03/17 22:24 1,000 mls/hr .BOLUS ONE Administration Promethazine HCl 12.5 mg/ 50.5 mls @ 200 mls/hr 05/03/17 22:31 05/03/17 22:48 Sodium Chloride IV 05/03/17 22:46 200 mls/hr NOW STA Administration Ondansetron HCl 4 mg 05/03/17 20:56 05/03/17 21:03 Zofran IVPUSH 05/03/17 20:57 4 mg ONETIME ONE Administration - Radiology Interpretation Free Text/Narrative:: CXR-no acute findings Departure - Departure Time of Disposition: 22:55 Disposition: DC/[facility]fer to [facility] 02 Condition: Critical Clinical Impression: Elevated troponin I level, Elevated d-dimer, Elevated lactic acid level, Tachycardia, Thrombocytopenia Hypotension Qualifiers: Hypotension type: unspecified hypotension type Qualified Code(s): I95.9 - Hypotension, unspecified Acute renal failure (ARF) Qualifiers: Acute renal failure type: unspecified Qualified Code(s): N17.9 - Acute kidney failure, unspecified - Discharge Information Referrals: Judson Perez MD [Primary Care Provider] - Forms: ED Department Discharge - My Orders Last 24 Hours: My Active Orders 05/03/17 20:30 Cardiac Monitoring [RC] .As Directed Orthostatic Vital Signs [RC] ASDIRECTED 05/03/17 20:50 CULTURE BLOOD [BC] Stat 05/03/17 21:25 EKG Documentation Completion [RC] ASDIRECTED EKG 12 Lead [EK] Routine 05/03/17 21:35 Heparin Sodium/D5W [Heparin 25,000 Units in D5W 500 ML] 25,000 units in 500 ml IV TITRATE 05/03/17 21:44 CULTURE BLOOD [BC] Stat 05/03/17 21:45 Chest 1V Frontal [CR] Stat 05/03/17 22:04 Urinary Catheter Assessment [RC] ASDIRECTED 05/03/17 22:15 Ash Catheter Insertion [Insert Urinary Catheter] [OM.PC] Q24H 05/03/17 22:30 DOPamine/Dextrose 5%-Water [DOPamine in D5W 400 MG/250 ML] 400 mg in 250 ml IV TITRATE 05/03/17 22:41 EKG Documentation Completion [RC] ASDIRECTED EKG 12 Lead [EK] Routine - Assessment/Plan Last 24 Hours: My Active Orders 05/03/17 20:30 Cardiac Monitoring [RC] .As Directed Orthostatic Vital Signs [RC] ASDIRECTED 05/03/17 20:50 CULTURE BLOOD [BC] Stat 05/03/17 21:25 EKG Documentation Completion [RC] ASDIRECTED EKG 12 Lead [EK] Routine 05/03/17 21:35 Heparin Sodium/D5W [Heparin 25,000 Units in D5W 500 ML] 25,000 units in 500 ml IV TITRATE 05/03/17 21:44 CULTURE BLOOD [BC] Stat 05/03/17 21:45 Chest 1V Frontal [CR] Stat 05/03/17 22:04 Urinary Catheter Assessment [RC] ASDIRECTED 05/03/17 22:15 Ash Catheter Insertion [Insert Urinary Catheter] [OM.PC] Q24H 05/03/17 22:30 DOPamine/Dextrose 5%-Water [DOPamine in D5W 400 MG/250 ML] 400 mg in 250 ml IV TITRATE 05/03/17 22:41 EKG Documentation Completion [RC] ASDIRECTED EKG 12 Lead [EK] Routine
[2017-05-03] MEDS ORDERED: Heparin Sodium 5,000 Units/ML Vial IVPUSH ONE (21:30)
[2017-05-03] MEDS ORDERED: Heparin Sodium/D5W 25,000 UNITS/500 ML BAG IV SCH (21:35)
[2017-05-03] MEDS ORDERED: Piperacillin/Tazobactam 4.5 GM in Sodium Chloride 0.9% 100 ML IV STA (21:54)
[2017-05-03] MEDS ORDERED: Sodium Chloride 0.9% 500 ML IV ONE (21:55)
[2017-05-03] MEDS ORDERED: DOPamine/Dextrose 5%-Water 400 MG/250 ML BAG IV SCH (22:30)
[2017-05-03] MEDS ORDERED: Promethazine 12.5 MG in Sodium Chloride 0.9% 50 ML IV STA (22:31)
[2017-05-03 22:42] VITALS: BP 76/36
--- NOTE | 2017-05-04 08:51 | CR ---
Chest 1V Frontal HISTORY: Elevated d-dimer COMPARISON: 07/06/2016. FINDINGS: Right-sided Port-A-Cath. Rotated film to the right. Cardiac size is normal no acute congest kimberli change no focal infiltrates. There are no effusions. Impression: No acute focal infiltrate.
== END 2017-05-03 22:59 ==
LOC: JP.ED 20:10
DX: I95.9 Hypotension, unspecified (principal); N17.9 Acute kidney failure, unspecified; R79.89 Other specified abnormal findings of blood chemistry; D69.6 Thrombocytopenia, unspecified; E11.9 Type 2 diabetes mellitus without complications; F17.210 Nicotine dependence, cigarettes, uncomplicated; Z79.4 Long term (current) use of insulin; Z79.899 Other long term (current) drug therapy; Z77.22 Contact with and (suspected) exposure to environmental tobacco smoke (acute) (chronic)
CPT/HCPCS: 36415; 51702; 71045; 71045-26; 80048; 81001; 83605; 84484; 85027; 85379; 87040; 87077; 87186; 93005; 93010; 96361; 96365; 96368; 96375; 96376; 99285; 99285-25; J1170; J1265; J1644; J2405; J2543; J2550; J7030; J7040; J7050; J7120

== ENCOUNTER 2017-06-29 05:27 | Emergency (ER) | payer MEDICARE, MEDICAID ==
[2017-06-29] MEDS ORDERED: Lactated Ringers 1,000 ML IV SCH (06:00)
--- NOTE | 2017-06-29 06:27 | EDM.PDOC ---
ED HPI GENERAL MEDICAL PROBLEM - General Chief Complaint: Fever Stated Complaint: MEDICAL [facility]IA [facility] Time Seen by Provider: 06/29/17 05:49 Source of Information: Reports: Patient, Old Records, RN Notes Reviewed History Limitations: Reports: Physical Impairment - History of Present Illness INITIAL COMMENTS - FREE TEXT/NARRATIVE: 61-year-old female presents to the emergency department today via EMS services for fever, she is a [facility] resident does have a history of encephalopathy and is a difficult historian. Majority of this history is taken from chart review as well as review of systems. Per [facility]dc records she has had fevers on and off for 1 week with fever up to 103 today. she does have a history of non-Hodgkin's follicular lymphoma did have fairly significant septic shock in April of this year ending up with a non-ST elevation myocardial infarction probable type II with encephalopathy and secondary fdc placement. Septic shock was thought to be from a pseudomonas infection on the right lower extremity which has been followed by wound care she had extensive surgical debridement and wound VAC placement. Review of wound care notes state that the wound had a foul order with significant necrotic tissue on for 27 wound VAC was discontinued and treatment started with acidic acid. chronic Pain Score (Numeric/FACES): 7 - Related Data Allergies Allergy/AdvReac Type Severity Reaction Status Date / Time No Known Allergies Allergy Verified 06/29/17 05:32 Home Meds: Home Meds Spironolactone [Aldactone] 150 mg PO DAILY 09/21/16 [History] Acetaminophen 650 mg PO Q4H PRN 06/29/17 [History] Acetic Acid [Acetic Acid 0.25%] 1 applic TOP BID 06/29/17 [History] Bumetanide 1 mg PO DAILY 06/29/17 [History] Carvedilol 3.125 mg PO BID 06/29/17 [History] Cholecalciferol (Vitamin D3) [Vitamin D3] 2,000 unit PO DAILY 06/29/17 [History] Dexamethasone 1 mg PO DAILY 06/29/17 [History] HYDROmorphone [Dilaudid] 2 mg PO Q4H PRN 06/29/17 [History] Insulin Glargine,Hum.Rec.Anlog [Basaglar Kwikpen U-100] 12 unit SQ DAILY [History] Insulin Glargine,Hum.Rec.Anlog [Basaglar Kwikpen U-100] 30 unit SQ BEDTIME 06/29 [History] Insulin Lispro [HumaLOG] 10 unit SQ TIDMEALS 06/29/17 [History] Lactobacillus Acidophilus [Acidophilus Lactobacilli] 1 each PO TID 06/29/17 [ History] Loperamide HCl [Imodium A-D] 2 mg PO BEDTIME 06/29/17 [History] Melatonin 6 mg PO BEDTIME 06/29/17 [History] Morphine Sulfate 30 mg PO BID 06/29/17 [History] Multivitamins/Min/Ca/FA/Iron [Thera-M] 1 each PO DAILY 06/29/17 [History] Nicotine [Nicotine Patch] 1 patch TD DAILY 06/29/17 [History] Omeprazole 20 mg PO DAILY 06/29/17 [History] Ondansetron [Zofran ODT] 4 mg PO Q6H PRN 06/29/17 [History] Sodium Chloride 1 gm PO BID 06/29/17 [History] hydrOXYzine HCl [Atarax] 50 mg PO Q8H PRN 06/29/17 [History] oxyCODONE 5 mg PO Q6H PRN 06/29/17 [History] Past Medical History HEENT History: Reports: Impaired Vision Cardiovascular History: Reports: CAD, [place] Gastrointestinal History: Reports: Chronic Constipation Other Gastrointestinal History: took the meds to get rid of hep c Genitourinary History: Reports: Urinary Incontinence 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 (See Below) Other OB/BYN History: uterine infection Musculoskeletal History: Reports: Back Pain, Chronic, Osteoporosis, Other (See Below) Other Musculoskeletal History: spinal stenosis Neurological History: Reports: Neuropathy, Diabetic, Other (See Below) ( Encephalopathy) Endocrine/Metabolic History: Reports: Diabetes, Type II Hematologic History: Reports: Anemia, Blood Transfusion(s) Immunologic History: Reports: Immunosuppression Oncologic (Cancer) History: Reports: Lymphoma - Infectious Disease History Infectious Disease History: Reports: Chicken Pox, Measles, Mumps - Past Surgical History GI Surgical History: Reports: Abdominal paracentesis, Appendectomy Female Surgical History: Reports: Hysterectomy, Salpingo-Oophorectomy Social & Family History - Family History Oncologic: Reports: Bone, Brain - Tobacco Use Smoking Status *Q: Current Some Day Smoker Years of Tobacco use: 40 Packs/Tins Daily: 1 Tobacco Use Comment: states hasn't smoked in 2 months - Caffeine Use Caffeine Use: Reports: Coffee, Tea - Recreational Drug Use Recreational Drug Use: No ED ROS GENERAL - Review of Systems Review Of Systems: See Below Constitutional: Reports: Fever HEENT: Reports: No Symptoms Respiratory: Reports: No Symptoms Cardiovascular: Reports: No Symptoms GI/Abdominal: Reports: No Symptoms : Reports: No Symptoms Musculoskeletal: Reports: Leg Pain Skin: Reports: Wound Neurological: Reports: No Symptoms ED EXAM, SEPSIS - Physical Exam Exam: See Below Text/Narrative:: Right lower extremity is painful to touch patient refuses eye examination of the right lower extremity and will not allow me to remove the dressing Exam Limited By: Physical Impairment General Appearance: Alert, No Apparent Distress Eye Exam: Bilateral Eye: Normal Inspection Throat/Mouth: Normal Inspection, Normal Lips, Normal Teeth, Normal Gums, Normal Oropharynx, Normal Voice, No Airway Compromise Head: Atraumatic, Normocephalic Neck: Normal Inspection, Supple, Non-Tender, Full Range of Motion Respiratory/Chest: No Respiratory Distress, Lungs Clear, Normal Breath Sounds, No Accessory Muscle Use Cardiovascular: Regular Rate, Rhythm, No Murmur GI/Abdominal Exam: Soft, Non-Tender Course - Vital Signs Last Recorded V/S: Last Vital Signs Temp 97.6 F 06/29/17 06:59 Pulse 80 06/29/17 06:59 Resp 18 06/29/17 05:28 BP 93/56 L 06/29/17 06:59 Pulse Ox 95 06/29/17 06:59 - Orders/Labs/Meds Orders: Active Orders 24 hr Category Date Time Status Vital Signs [RC] Q1H Care 06/29/17 05:58 Active CULTURE BLOOD [BC] Urgent Lab 06/29/17 06:15 Received CULTURE BLOOD [BC] Urgent Lab 06/29/17 06:23 Received HAPTOGLOBIN Stat Lab 06/29/17 07:25 Ordered LACTATE DEHYDROGENASE,LDH [CHEM] Stat Lab 06/29/17 07:25 Ordered Cefepime [Maxipime] 2 gm Med 06/29/17 07:09 Ordered Sodium Chloride 0.9% [Normal Saline] 50 ml IV NOW Lactated Ringers [Ringers, Lactated] 1,000 ml Med 06/29/17 06:00 Active IV ASDIRECTED Blood Culture x2 Reflex Set [OM.PC] Urgent Oth 06/29/17 05:58 Ordered Medication Orders Lactated Ringer's (Ringers, Lactated) 1,000 mls @ 125 mls/hr IV ASDIRECTED AMANDA Last Admin: 06/29/17 06:29 Dose: 125 mls/hr Cefepime HCl 2 gm/ Sodium (Chloride) 50 mls @ 100 mls/hr IV NOW STA Stop: 06/29/17 07:38 Labs: Laboratory Tests 06/29/17 06/29/17 06/29/17 Range/Units 06:15 06:15 06:15 WBC 1.5 L (4.5-11.0) K/uL RBC 2.76 L (3.30-5.50) M/uL Hgb 7.1 L D (12.0-15.0) g/dL Hct 22.5 L (36.0-48.0) % MCV 82 (80-98) fL MCH 26 L (27-31) pg MCHC 32 (32-36) % Plt Count 61 L (150-400) K/uL Add Manual Diff Yes Neutrophils % (Manual) 28 L (36-66) % Band Neutrophils % 23 H (5-11) % Lymphocytes % (Manual) 17 L (24-44) % Monocytes % (Manual) 30 H (2-6) % Eosinophils % (Manual) 2 (2-4) % Sodium 132 L (140-148) mmol/L Potassium 3.3 L (3.6-5.2) mmol/L Chloride 98 L (100-108) mmol/L Carbon Dioxide 23 (21-32) mmol/L Anion Gap 14.3 H (5.0-14.0) mmol/L BUN 17 (7-18) mg/dL Creatinine 0.6 D (0.6-1.0) mg/dL Est Cr Clr Drug Dosing 87.18 mL/min Estimated GFR (MDRD) > 60 (>60) Glucose 67 L (74-106) mg/dL Lactic Acid 1.6 (0.4-2.0) mmol/L Calcium 8.2 L (8.5-10.1) mg/dL Total Bilirubin 0.6 D (0.2-1.0) mg/dL AST 24 (15-37) U/L ALT 31 (12-78) U/L Alkaline Phosphatase 141 H (46-116) U/L C-Reactive Protein 8.50 H (0.0-0.3) mg/dL Total Protein 5.7 L (6.4-8.2) g/dL Albumin 2.3 L (3.4-5.0) g/dL Globulin 3.4 (2.3-3.5) g/dL Albumin/Globulin Ratio 0.7 L (1.2-2.2) Meds: Medications Generic Name Dose Route Start Last Admin Trade Name Freq PRN Reason Stop Dose Admin Lactated Ringer's 1,000 mls @ 125 mls/hr 06/29/17 06:00 06/29/17 06:29 Ringers, Lactated IV 125 mls/hr ASDIRECTED AMANDA Administration Cefepime HCl 2 gm/ Sodium 50 mls @ 100 mls/hr 06/29/17 07:09 Chloride IV 06/29/17 07:38 NOW STA Departure - Departure Time of Disposition: 07:33 Disposition: DC/Tfer to [facility] 02 Condition: Poor Clinical Impression: Neutropenic fever Sepsis Qualifiers: Sepsis type: sepsis due to unspecified organism Qualified Code(s): A41.9 - Sepsis, unspecified organism - Discharge Information Referrals: PCP,None [Primary Care Provider] - Forms: ED Department Discharge - My Orders Last 24 Hours: My Active Orders 06/29/17 05:58 Vital Signs [RC] Q1H Blood Culture x2 Reflex Set [OM.PC] Urgent 06/29/17 06:00 Lactated Ringers [Ringers, Lactated] 1,000 ml IV ASDIRECTED 06/29/17 06:15 CULTURE BLOOD [BC] Urgent 06/29/17 06:23 CULTURE BLOOD [BC] Urgent 06/29/17 07:09 Cefepime [Maxipime] 2 gm Sodium Chloride 0.9% [Normal Saline] 50 ml IV NOW 06/29/17 07:25 HAPTOGLOBIN Stat LACTATE DEHYDROGENASE,LDH [CHEM] Stat - Assessment/Plan Last 24 Hours: My Active Orders 06/29/17 05:58 Vital Signs [RC] Q1H Blood Culture x2 Reflex Set [OM.PC] Urgent 06/29/17 06:00 Lactated Ringers [Ringers, Lactated] 1,000 ml IV ASDIRECTED 06/29/17 06:15 CULTURE BLOOD [BC] Urgent 06/29/17 06:23 CULTURE BLOOD [BC] Urgent 06/29/17 07:09 Cefepime [Maxipime] 2 gm Sodium Chloride 0.9% [Normal Saline] 50 ml IV NOW 06/29/17 07:25 HAPTOGLOBIN Stat LACTATE DEHYDROGENASE,LDH [CHEM] Stat Plan: Assessment Acuity = acute Site and laterality = early sepsis complicated in a patient with follicular lymphoma neutropenia Etiology = suspicious for bacterial cause possibly Pseudomonas from prior wound infection Manifestations = fever, hypotensive Location of injury = Home Lab values = WBC 1.5 consistent leukopenia 28% neutrophils, hemoglobin low at 7.1 consistent with normochromic anemia, platelets low at 61 consistent thrombocytopenia sodium low at 132 consistent hyponatremia potassium low at 3.3 consistent with hypokalemia glucose low at 67 consistent with hypoglycemia CRP elevated at 8.5, lactic acid normal at 1.6 albumin low at 2.3 consistent hypoalbuminemia Plan Called discussed case with Dr. Benoit hospitalist junior automation engineer at [facility] kindly accepted the patient in transport blood cultures have been drawn, lactic acid and haptoglobin also drawn lab work pending started antibiotics of cefepime 2 g IV she is received 1 L of fluids lactated Ringer's will be transported via EMS ground This note was dictated using [employer] voice recognition software please call with any questions on syntax or grammar.
[2017-06-29] MEDS ORDERED: Cefepime 2 GM in Sodium Chloride 0.9% 50 ML IV STA (07:09)
[2017-06-29] MEDS ORDERED: oxyCODONE 5 MG Tab PO ONE ×2 (08:01→08:53)
[2017-06-29 08:46] VITALS: BP 101/47
== END 2017-06-29 08:50 ==
LOC: JP.ED 05:27
DX: A41.9 Sepsis, unspecified organism (principal); D70.9 Neutropenia, unspecified; R50.81 Fever presenting with conditions classified elsewhere; I25.2 Old myocardial infarction; E11.40 Type 2 diabetes mellitus with diabetic neuropathy, unspecified; Z79.4 Long term (current) use of insulin; F17.210 Nicotine dependence, cigarettes, uncomplicated; Z79.899 Other long term (current) drug therapy
CPT/HCPCS: 36415; 80053; 82962; 83010; 83605; 83615; 85025; 86140; 87040; 96361; 96365; 99285; A9270; J0692; J7050; J7120

== ENCOUNTER 2018-02-15 19:41 | Emergency (ER) | payer MEDICARE, MEDICAID ==
[2018-02-15 20:10] VITALS: BP 116/41
[2018-02-15] MEDS ORDERED: Ondansetron 4 MG Tab.DIS PO ONE (20:33)
[2018-02-15] MEDS ORDERED: Sodium Chloride 0.9% 100 ML IV ONE (21:07)
[2018-02-15] MEDS ORDERED: Iopamidol 612 MG/ML 100 ML Bottle IV SCH (21:15)
[2018-02-16] MEDS ORDERED: Promethazine 25 MG Tab PO ONE (00:52)
--- NOTE | 2018-02-16 00:56 | EDM.PDOC ---
ED HPI GENERAL MEDICAL PROBLEM - General Chief Complaint: Gastrointestinal Problem Stated Complaint: VOMITING FOR 3 DAYS Time Seen by Provider: 02/15/18 20:11 Source of Information: Reports: Patient History Limitations: Reports: No Limitations - History of Present Illness INITIAL COMMENTS - FREE TEXT/NARRATIVE: This lady has metastatic lymphoma. She frequently requires blood transfusions. She was upstairs getting a transfusion today and complained of feeling really bad so she was sent down to the emergency department for evaluation. For the past 3 days she has vomited anything she is 8 or drank. She said the vomitus is sort of a dark bile looking material. She tried a Zofran 4 mg but said it didn' t work. She has a little bit of stool every day but there is been no blood in it. She notes that she had some cellulitis of the leg recently after some previous surgery she began an antibiotic one week ago she's not sure what it is. She complains of her legs swelling and has put on about 6-7 pounds in the past week of water. Her last paracentesis was about 3 weeks ago. After the transfusion upstairs she insisted that they leave her port accessed and so she will arrives in the ER with the port accessed. She's not having any fever she's not having any increased abdominal pain Treatments WIRE REPAIRER: Reports: Other (see below) Other Treatments WIRE REPAIRER: zofran upper abd pain Pain Score (Numeric/FACES): 8 - Related Data Allergies Allergy/AdvReac Type Severity Reaction Status Date / Time No Known Allergies Allergy Verified 02/15/18 20:02 Home Meds: Home Meds Spironolactone [Aldactone] 100 mg PO DAILY 09/21/16 [History] Acetaminophen 650 mg PO Q4H PRN 06/29/17 [History] Bumetanide 0.5 mg PO DAILY 06/29/17 [History] Cholecalciferol (Vitamin D3) [Vitamin D3] 2,000 unit PO DAILY 06/29/17 [History] Loperamide HCl [Imodium A-D] 2 mg PO BEDTIME 06/29/17 [History] Multivitamins/Min/Ca/FA/Iron [Thera-M] 1 each PO DAILY 06/29/17 [History] Ondansetron [Zofran ODT] 4 mg PO Q6H PRN 06/29/17 [History] Insulin Glarg,Human.Rec.Analog [Lantus] 25 units SQ QAM 12/08/17 [History] metFORMIN [Glucophage XR] 750 mg PO BID 12/08/17 [History] Allopurinol [Zyloprim] 300 mg PO DAILY 12/22/17 [History] Morphine Sulfate [Morphine Sulfate ER] 60 mg PO BID 01/11/18 [History] levoFLOXacin [Levofloxacin] 250 mg PO DAILY 01/11/18 [History] oxyCODONE 5 mg PO DAILY 01/11/18 [History] Prochlorperazine Maleate 10 mg PO 02/15/18 [History] Past Medical History HEENT History: Reports: Impaired Vision Cardiovascular History: Reports: CAD Respiratory History: Reports: SOB Gastrointestinal History: Reports: Chronic Constipation Other Gastrointestinal History: took the meds to get rid of hep c Genitourinary History: Reports: Urinary Incontinence ANALYTICS DEVELOPER History: Reports: Other (See Below) Other ANALYTICS DEVELOPER History: uterine infection Musculoskeletal History: Reports: Back Pain, Chronic, Osteoporosis, Other (See Below) Other Musculoskeletal History: spinal stenosis Neurological History: Reports: Neuropathy, Diabetic Endocrine/Metabolic History: Reports: Diabetes, Type II, Other (See Below) Other Endocrine/Metabolic History: Thyroid disease Hematologic History: Reports: Anemia, Blood Transfusion(s) Immunologic History: Reports: Immunosuppression Oncologic (Cancer) History: Reports: Bone, Lymphoma, Metastatic, Other (See Below) Other Oncologic History: spleen Dermatologic History: Reports: Cellulitis - Infectious Disease History Infectious Disease History: Reports: Chicken Pox, Measles, Mumps, Rubella, Shingles - Past Surgical History Cardiovascular Surgical History: Reports: Percutaneous Transluminal Angioplasty GI Surgical History: Reports: Abdominal paracentesis, Appendectomy Female Surgical History: Reports: Hysterectomy, Salpingo-Oophorectomy Social & Family History - Family History Oncologic: Reports: Bone, Brain - Tobacco Use Smoking Status *Q: Current Every Day Smoker Years of Tobacco use: 45 Packs/Tins Daily: 1 - Caffeine Use Caffeine Use: Reports: Coffee - Recreational Drug Use Recreational Drug Use: No ED ROS GENERAL - Review of Systems Review Of Systems: See Below Constitutional: Reports: Malaise, Weight Gain. Denies: Fever, Chills HEENT: Reports: No Symptoms Respiratory: Reports: No Symptoms Cardiovascular: Reports: No Symptoms Endocrine: Reports: No Symptoms GI/Abdominal: Reports: Nausea, Vomiting. Denies: Diarrhea : Reports: No Symptoms Musculoskeletal: Reports: Other Skin: Reports: No Symptoms (See history of present illness) Neurological: Reports: No Symptoms ED EXAM, GI/ABD - Physical Exam Exam: See Below Exam Limited By: No Limitations General Appearance: Alert (Chronically ill looking woman she's sitting up on the stretcher doesn't appear to be in much distress.) Eyes: Bilateral: Normal Appearance Throat/Mouth: Normal Inspection Neck: Normal Inspection Respiratory/Chest: Lungs Clear Cardiovascular: Regular Rate, Rhythm GI/Abdominal Exam: Soft (The abdomen is soft bowel sounds are active. There is a large mass in the left side of the abdomen) Extremities: Other (There is some moderate swelling of the both lower extremities which just appears to be edematous. Does not appear to be secondary to blood clots. It's nontender there is just a little bit of erythema in the bilateral antecubital fossa areas but this does not look like cellulitis.) Neurological: Alert Psychiatric: Other (Initially she was a little bit argumentative with the nurses but I doubt her fairly cooperative) Skin Exam: Other (As above) Course - Vital Signs Last Recorded V/S: Last Vital Signs Temp 36.4 C 02/15/18 20:08 Pulse 82 02/15/18 20:08 Resp 14 02/15/18 20:08 BP 116/41 L 02/15/18 20:08 Pulse Ox 98 02/15/18 20:08 - Orders/Labs/Meds Orders: Active Orders 24 hr Category Date Time Status Abdomen Pelvis w Cont [CT] Stat Exams 02/15/18 20:31 Taken Iopamidol [Isovue-300 (61%)] Med 02/15/18 21:15 Active 100 ml IV . DIRECTED Medication Orders Iopamidol (Isovue-300 (61%)) 100 ml IV . DIRECTED AMANDA Last Admin: 02/15/18 21:27 Dose: 100 ml Labs: Laboratory Tests 02/15/18 02/15/18 02/15/18 Range/Units 20:31 20:31 21:36 WBC 1.8 L (4.5-11.0) K/uL RBC 2.55 L (3.30-5.50) M/uL Hgb 7.6 L (12.0-15.0) g/dL Hct 22.6 L (36.0-48.0) % MCV 89 (80-98) fL MCH 30 (27-31) pg MCHC 34 (32-36) % Plt Count 29 L* (150-400) K/uL Neut % (Auto) 24 L (36-66) % Lymph % (Auto) 73 H (24-44) % [place] % (Auto) 3 (2-6) % Eos % (Auto) 0 L (2-4) % Baso % (Auto) 1 (0-1) % Sodium 134 L (140-148) mmol/L Potassium 4.9 (3.6-5.2) mmol/L Chloride 96 L (100-108) mmol/L Carbon Dioxide 27 (21-32) mmol/L Anion Gap 15.9 H (5.0-14.0) mmol/L BUN 44 H (7-18) mg/dL Creatinine 1.0 (0.6-1.0) mg/dL Est Cr Clr Drug Dosing 51.66 mL/min Estimated GFR (MDRD) 57 L (>60) Glucose 79 (74-106) mg/dL Calcium 11.6 H D (8.5-10.1) mg/dL Total Bilirubin 1.2 H D (0.2-1.0) mg/dL AST 14 L (15-37) U/L ALT 21 (12-78) U/L Alkaline Phosphatase 121 H (46-116) U/L Total Protein 5.2 L (6.4-8.2) g/dL Albumin 2.8 L (3.4-5.0) g/dL Globulin 2.4 (2.3-3.5) g/dL Albumin/Globulin Ratio 1.2 (1.2-2.2) Urine Color Yellow Urine Appearance Slightly cloudy Urine pH 7.0 (4.5-8.0) Ur Specific [place] 1.015 (1.008-1.030) Urine Protein Trace (NEGATIVE) mg/dL Urine Glucose (UA) Normal (NEGATIVE) mg/dL Urine Ketones Negative (NEGATIVE) mg/dL Urine Occult Blood Trace (NEGATIVE) Urine Nitrite Negative (NEGATIVE) Urine Bilirubin Negative (NEGATIVE) Urine Urobilinogen Normal (NORMAL) mg/dL Ur Leukocyte Esterase Negative (NEGATIVE) Urine RBC 0-5 (0-5) Urine WBC 0-5 (0-5) Ur Epithelial Cells Few Amorphous Sediment Numerous Urine Bacteria Rare Urine Mucus Few Urine Other See note Meds: Medications Generic Name Dose Route Start Last Admin Trade Name Freq PRN Reason Stop Dose Admin Iopamidol 100 ml 02/15/18 21:15 02/15/18 21:27 Isovue-300 (61%) IV 100 ml . DIRECTED AMANDA Administration Discontinued Medications Generic Name Dose Route Start Last Admin Trade Name Freq PRN Reason Stop Dose Admin Heparin Sodium (Porcine) 500 units 02/16/18 00:58 Heparin Lock Flush 100 Units/Ml FLUSH 02/16/18 00:59 ONETIME ONE Sodium Chloride 100 mls @ 3 mls/sec 02/15/18 21:07 02/15/18 21:27 Normal Saline IV 02/15/18 21:08 3 mls/sec ONETIME ONE Administration Ondansetron HCl 4 mg 02/15/18 20:33 02/15/18 20:38 Zofran Odt PO 02/15/18 20:34 4 mg ONETIME ONE Administration Promethazine HCl 25 mg 02/16/18 00:52 Phenergan PO 02/16/18 00:53 ONETIME ONE - Radiology Interpretation Free Text/Narrative:: See below - Re-Assessments/Exams Free Text/Narrative Re-Assessment/Exam: 02/16/18 01:03 Labs were noted on this patient. A abdominal CT was performed. It does show a huge spleen but there is no suggestion of a small bowel obstruction. There was a little bit of thickening of the duodenal wall. There was no appreciable constipation Departure - Departure Time of Disposition: 00:53 Disposition: Home, Self-Care 01 Condition: Fair Clinical Impression: Vomiting, Lymphoma - Discharge Information Referrals: Judson Perez MD [Primary Care Provider] - Forms: ED Department Discharge Additional Instructions: For vomiting take Pherergan 25 mg, 1 tab every 6-8 hours (#15). this can cause sedation and lead to falls. It also can cause constipation so use a laxative like Mirlax. Don't take Zofran (ondansetron) at the same time. There was a little bit of thickening in the duodenum like maybe there could be some duodenitis that sort of like gastritis. The omeprazole may help that. Omeprazole is the same as the "purple pill" or Prilosec. See your doctor soon. - My Orders Last 24 Hours: My Active Orders 02/15/18 20:31 Abdomen Pelvis w Cont [CT] Stat 02/15/18 21:15 Iopamidol [Isovue-300 (61%)] 100 ml IV . DIRECTED - Assessment/Plan Last 24 Hours: My Active Orders 02/15/18 20:31 Abdomen Pelvis w Cont [CT] Stat 02/15/18 21:15 Iopamidol [Isovue-300 (61%)] 100 ml IV . DIRECTED
== END 2018-02-16 01:46 | disposition home or self-care (01) ==
LOC: JP.ED 19:41
DX: R11.10 Vomiting, unspecified (principal); C85.99 Non-Hodgkin lymphoma, unspecified, extranodal and solid organ sites; R16.1 Splenomegaly, not elsewhere classified; E11.40 Type 2 diabetes mellitus with diabetic neuropathy, unspecified; F17.210 Nicotine dependence, cigarettes, uncomplicated; Z79.84 Long term (current) use of oral hypoglycemic drugs; Z79.4 Long term (current) use of insulin; Z79.899 Other long term (current) drug therapy; D61.818 Other pancytopenia; D69.6 Thrombocytopenia, unspecified
CPT/HCPCS: 36415; 36430; 74177; 80053; 81001; 85025; 99283; 99284; A9270; J1642; J7030; P9016; Q9967; 86850; 86900; 86901; 86920; 86922; 86945